=== PATIENT | female | born 1935 | race Caucasian/White ===

== ENCOUNTER → 2021-01-30 | Outpatient (CLI) | payer MEDICARE ==
[~2021-01-30] MED LIST: ACET65TA; AFRI0.65; ALBUTEROL INH; ATROVENT; ATROVENT0.02%; AVAP300T; AVEL1TAB2; CALCIUM/VIT D OR; CEFT250T; CEFT500T OR; CETI10TA OR; FLOVENT INH; LEVA500T OR; LISI40TA OR; NEXI1CAP3; NYSTATIN ORAL OR; OMEGA 3 OR; ORASONE; PAXI20TA OR; PRED10TA2; PRED10TA2 OR; PROV90AE; SERE1AER; SPIR1CAP; SPIR1CAP INH; XANA0.25; [UNRECOGNIZED DRUG - OTHER]; brovana
--- NOTE | 2021-01-30 12:44 | REP ---
INDICATION: PAIN, DECREASED ROM. COMPARISON: None. TECHNIQUE: Three views of the shoulder were performed. FINDINGS: There is moderate AC joint space narrowing which is slightly asymmetric. There is glenohumeral joint space narrowing with superior subluxation of the humeral head within the glenoid. This narrows the subacromial space rather significantly. There is no evidence of an acute fracture or dislocation. IMPRESSION: Chronic changes as described above. <Electronically signed by Amanuel Boyle > 01/30/21 [id number]
== END ==
LOC: M WUC 11:42
PROVIDERS: ATTEND Physician Assistant Medical
DX: M25.511 Pain in right shoulder (principal)

== ENCOUNTER → 2021-06-02 | Outpatient (CLI) | payer MEDICARE ==
[2021-06-02 18:14] LABS: CREATININE FOR GFR 1.01 MG/DL (0.55-1.30); GLOMERULAR FILTRATION RATE 55.5 (>32); POTASSIUM SERUM 4.7 MEQ/L (3.5-5.1); THYROID STIMULATING HORMONE 1.23 uIU/ML (0.358-3.740)
[2021-06-02 18:16] LABS: CREATININE, URINE 67.9 MG/DL; MALB URINE SIEMENS 6.7 MG/L; MAU/CREAT RATIO 9.8 MCG/MG (0.0-30.0)
== END ==
LOC: M PLALAB 14:38
PROVIDERS: ATTEND Nurse Practitioner Family
DX: F41.1 Generalized anxiety disorder (principal); I10 Essential (primary) hypertension

== ENCOUNTER → 2021-06-24 | Outpatient (REF) | payer MEDICARE ==
[2021-06-24 17:19] LABS: BASO # 0.1 10^3/uL (0.0-0.2); BASO % 0.9 % (0.0-1.0); EOS # 0.3 10^3/uL (0.0-0.5); EOS % 3.3 % (0.0-3.0); HEMATOCRIT 36.5 % (36.0-47.0); HEMOGLOBIN 11.9 g/dl (12.0-15.5); LYMPH # 1.7 10^3/uL (1.5-5.0); LYMPH % 19.9 % (24.0-44.0); MEAN CORPUSCULAR HEMOGLOBIN 29.8 pg (27.0-33.0); MEAN CORPUSCULAR HGB CONC 32.6 g/dl (32.0-36.5); MEAN CORPUSCULAR VOLUME 91.5 fl (80.0-96.0); MONO # 0.8 10^3/uL (0.0-0.8); MONO % 8.8 % (2.0-8.0); NEUTROPHILS # 5.8 10^3/uL (1.5-8.5); NEUTROPHILS % 66.8 % (36.0-66.0); PLATELET COUNT, AUTOMATED 437 10^3/uL (150-450); RED BLOOD COUNT 3.99 10^6/uL (4.00-5.40); WHITE BLOOD COUNT 8.7 10^3/uL (4.0-10.0)
[2021-06-24 17:48] LABS: ALBUMIN 3.4 GM/DL (3.2-5.2); ALT/SGPT 18 U/L (12-78); BILIRUBIN,TOTAL 0.3 MG/DL (0.2-1.0); BLOOD UREA NITROGEN 20 MG/DL (7-18); C REACTIVE PROTEIN QUANTITATIV 0.63 MG/DL (0.00-0.30); CALCIUM LEVEL 9.3 MG/DL (8.8-10.2); CARBON DIOXIDE LEVEL 27 MEQ/L (21-32); CHLORIDE LEVEL 103 MEQ/L (98-107); CREATININE FOR GFR 0.86 MG/DL (0.55-1.30); GLOMERULAR FILTRATION RATE > 60.0 (>32); GLUCOSE, FASTING 69 MG/DL (70-100); POTASSIUM SERUM 4.8 MEQ/L (3.5-5.1); RHEUMATOID FACTOR QUANT < 10.0 IU/ML (<15.0); SODIUM LEVEL 135 MEQ/L (136-145); TOTAL PROTEIN 5.9 GM/DL (6.4-8.2)
[2021-06-24 17:58] LABS: ERYTHROCYTE SEDIMENTATION RATE 10 mm/hr (0-30)
[2021-06-27 00:07] LABS: ANA (HEP2) Negative (.); CYCLIC CITRULLINATED PEPTIDE 6 units (0-19)
== END ==
LOC: M SFHCRHEU 13:59
PROVIDERS: ATTEND Internal Medicine Rheumatology
DX: M89.49 Other hypertrophic osteoarthropathy, multiple sites (principal)
CPT/HCPCS: 36415; 80053; 85025; 85652; 86038; 86140; 86200; 86431; G0463

== ENCOUNTER → 2021-07-20 | Outpatient (CLI) | payer MEDICARE ==
--- NOTE | 2021-07-20 12:04 | REP ---
INDICATION: OTHER HYPERTROPHIC OSTEOARTHROPATHY, MULTIPLE SITES COMPARISON: None. TECHNIQUE: AP, lateral, bilateral oblique views right and left hand. FINDINGS: Relatively symmetric advanced osteoarthritic degenerative changes are appreciated bilaterally. Findings most notably involve the interphalangeal joints along with the 1st metacarpophalangeal joint and lateral aspect of the wrists. Findings include periarticular sclerosis, joint space narrowing, marginal spurring/osteophyte formation as well as 1st carpometacarpal joint chronic subluxation and chondrocalcinosis. IMPRESSION: Relatively symmetric advanced osteoarthritic degenerative changes to the hands and wrists. <Electronically signed by Arian Williamson > 07/20/21 1200
--- NOTE | 2021-07-20 12:06 | REP ---
INDICATION: OTHER HYPERTROPHIC OSTEOARTHROPATHY, MULTIPLE SITES COMPARISON: None. TECHNIQUE: AP, lateral, bilateral oblique views right and left foot. FINDINGS: Relatively symmetric age-related degenerative changes noted throughout the foot/ankles. No acute fracture or dislocation. Lateral views demonstrate small bilateral calcaneal heel spurs. IMPRESSION: Symmetric age-related degenerative changes. <Electronically signed by Arian Williamson > 07/20/21 [id number]
== END ==
LOC: M PLAIMG 11:27 → M PLALAB 11:27
PROVIDERS: ATTEND Internal Medicine Rheumatology
DX: M89.49 Other hypertrophic osteoarthropathy, multiple sites (principal)

== ENCOUNTER → 2022-02-25 | Outpatient (CLI) | payer MEDICARE ==
[2022-02-25 13:57] LABS: HEMATOCRIT 40.6 % (36.0-47.0); HEMOGLOBIN 13.3 g/dl (12.0-15.5); MEAN CORPUSCULAR HEMOGLOBIN 30.2 pg (27.0-33.0); MEAN CORPUSCULAR HGB CONC 32.8 g/dl (32.0-36.5); MEAN CORPUSCULAR VOLUME 92.3 fl (80.0-96.0); PLATELET COUNT, AUTOMATED 374 10^3/uL (150-450)
[2022-02-25 14:48] LABS: ALBUMIN 3.6 GM/DL (3.2-5.2); BILIRUBIN,TOTAL 0.5 MG/DL (0.2-1.0); CALCIUM LEVEL 8.9 MG/DL (8.8-10.2); CHOLESTEROL RISK RATIO 2.877 (<5); CREATININE FOR GFR 1.02 MG/DL (0.55-1.30); GLOMERULAR FILTRATION RATE 54.7 (>32); POTASSIUM SERUM 4.3 MEQ/L (3.5-5.1); THYROID STIMULATING HORMONE 1.24 uIU/ML (0.358-3.740); TOTAL PROTEIN 6.1 GM/DL (6.4-8.2)
== END ==
LOC: M PLALAB 10:38
PROVIDERS: ATTEND Nurse Practitioner Adult Health
DX: Z00.00 Encounter for general adult medical examination without abnormal findings (principal); Z13.29 Encounter for screening for other suspected endocrine disorder; E55.9 Vitamin D deficiency, unspecified; E78.2 Mixed hyperlipidemia; I10 Essential (primary) hypertension; Z79.899 Other long term (current) drug therapy

== ENCOUNTER → 2022-05-14 | Outpatient (CLI) | payer MEDICARE | LOC: M PLAIMG 10:45 → M PLALAB 10:45 | PROVIDERS: ATTEND Internal Medicine Pulmonary Disease | DX: J96.11 Chronic respiratory failure with hypoxia (principal); J44.9 Chronic obstructive pulmonary disease, unspecified; M51.36 Other intervertebral disc degeneration, lumbar region ==

== ENCOUNTER → 2022-11-26 | Outpatient (REF) | payer MEDICARE | LOC: M LAB REF 14:50 | PROVIDERS: ATTEND Internal Medicine Pulmonary Disease | DX: J44.9 Chronic obstructive pulmonary disease, unspecified (principal); J30.9 Allergic rhinitis, unspecified ==

== ENCOUNTER → 2023-01-12 | Outpatient (CLI) | payer MEDICARE ==
[2023-01-12 15:48] LABS: ALBUMIN 3.6 G/DL (3.2-5.2); BILIRUBIN,TOTAL 0.5 MG/DL (0.3-1.2); CALCIUM LEVEL 9.1 MG/DL (8.3-10.6); CREATININE FOR GFR 1.08 MG/DL (0.55-1.30); GLOMERULAR FILTRATION RATE 51.2 (>32); POTASSIUM SERUM 4.9 MMOL/L (3.5-5.1); TOTAL PROTEIN 5.5 G/DL (5.7-8.2)
== END ==
LOC: M PLALAB 11:53
PROVIDERS: ATTEND Nurse Practitioner Adult Health
DX: I10 Essential (primary) hypertension (principal)

== ENCOUNTER 2023-03-28 16:40 | Inpatient (IN) | payer MEDICARE ==
[~2023-03-28] VITALS: Ht 157.5 cm; Wt 63.8 kg
[2023-03-28] MEDS ORDERED: methylPREDNISolone 125MG 2ML VIAL IV ONE (17:15)
[2023-03-28 17:22] LABS: BASO # 0.1 10^3/uL (0.0-0.2); BASO % 0.2 % (0.0-1.0); HEMATOCRIT 40.8 % (36.0-47.0); HEMOGLOBIN 13.2 g/dl (12.0-15.5); LYMPH # 1.4 10^3/uL (1.5-5.0); LYMPH % 5.5 % (24.0-44.0); MEAN CORPUSCULAR HEMOGLOBIN 30.1 pg (27.0-33.0); MEAN CORPUSCULAR HGB CONC 32.4 g/dl (32.0-36.5); MEAN CORPUSCULAR VOLUME 93.2 fl (80.0-96.0); MONO # 1.3 10^3/uL (0.0-0.8); MONO % 4.9 % (2.0-8.0); NEUTROPHILS # 22.8 10^3/uL (1.5-8.5); NEUTROPHILS % 88.7 % (36.0-66.0); PLATELET COUNT, AUTOMATED 479 10^3/uL (150-450); RED BLOOD COUNT 4.38 10^6/uL (4.00-5.40); WHITE BLOOD COUNT 25.7 10^3/uL (4.0-10.0)
[2023-03-28 17:53] LABS: CK-MB VALUE MASS 1.8 NG/ML (<3.6)
[2023-03-28 17:55] LABS: ALBUMIN 3.9 G/DL (3.2-5.2); ALKALINE PHOSPHATASE 95 U/L (46-116); ALT/SGPT 35 U/L (7.0-40); AST/SGOT 27 U/L (<34); BILIRUBIN,DIRECT 0.1 MG/DL (<0.4); BILIRUBIN,TOTAL 0.4 MG/DL (0.3-1.2); BLOOD UREA NITROGEN 19 MG/DL (9-23); CALCIUM LEVEL 9.1 MG/DL (8.3-10.6); CARBON DIOXIDE LEVEL 28 MMOL/L (20-31); CHLORIDE LEVEL 101 MMOL/L (98-107); CPK CREATINE PHOSPHOKINASE 66 U/L (34-145); CREATININE FOR GFR 0.92 MG/DL (0.55-1.30); GLOMERULAR FILTRATION RATE > 60.0 (>32); GLUCOSE, FASTING 151 MG/DL (74-106); MB/CK RELATIVE INDEX 2.72 (< OR =4); POTASSIUM SERUM 4.6 MMOL/L (3.5-5.1); SODIUM LEVEL 136 MMOL/L (136-145); TOTAL PROTEIN 6.2 G/DL (5.7-8.2)
[2023-03-28 17:56] LABS: THYROID STIMULATING HORMONE 0.572 uIU/ML (0.55-4.78)
[2023-03-28 17:57] LABS: THYROXINE (T4) 6.8 UG/DL (4.5-10.9)
[2023-03-28 19:06] LABS: MB/CK RELATIVE INDEX 1.56 (< OR =4)
[2023-03-28] MEDS ORDERED: ALBU8.5H INH (20:20)
[2023-03-28] MEDS ORDERED: CETI10TA4 PO (20:20)
[2023-03-28] MEDS ORDERED: FLON1SPR NARES (20:26)
[2023-03-28] MEDS ORDERED: GALZ50CA PO (20:26)
[2023-03-28] MEDS ORDERED: PRED10TA2 PO (20:39)
[2023-03-28] MEDS ORDERED: PARO10TA3 PO (20:39)
[2023-03-28] MEDS ORDERED: BIMA01SOL OU (20:39)
[2023-03-28] MEDS ORDERED: LISI20TA33 PO (20:39)
[2023-03-28] MEDS ORDERED: ANOR1AER INH (20:39)
[2023-03-28] MEDS ORDERED: ARNU1INH3 INH (20:39)
[2023-03-28] MEDS ORDERED: CALC-190 PO (20:39)
[2023-03-28] MEDS ORDERED: MUCI600T31 PO (20:39)
[2023-03-28] MEDS ORDERED: ACET650T61 PO (20:39)
[2023-03-28] MEDS ORDERED: HOME MED LIST COMPLETE! XX SCH (20:40)
[2023-03-28] MEDS ORDERED: ALBUTEROL SULFATE 2.5MG/0.5ML INH NEB SOLN NEB PRN (20:40)
[2023-03-28] MEDS ORDERED: NS 1,000 ML IV SCH (20:40)
[2023-03-28] MEDS: ACETAMINOPHEN TAB 650MG DOSE (2X325MG) PO PRN (22:01)
[2023-03-28] MEDS: methylPREDNISolone 40MG 1ML VIAL IV SCH (22:42)
[2023-03-28 23:30] VITALS: BP 162/98; TEMP 97.5; O2SAT 94
[2023-03-29] MEDS: guaiFENesin ER 600 MG TAB PO SCH ×3 (00:06→22:27)
[2023-03-29] MEDS ORDERED: NS 500 ML IV ONE (00:20)
[2023-03-29] MEDS ORDERED: IPRATROPIUM 0.5MG/ALBUTEROL 2.5MG INH SOL UD 3ML (DUONEB) NEB SCH (02:00)
[2023-03-29] MEDS: methylPREDNISolone 40MG 1ML VIAL IV SCH (04:51)
[2023-03-29 04:54] LABS: BLOOD UREA NITROGEN 20 MG/DL (9-23); CALCIUM LEVEL 8.3 MG/DL (8.3-10.6); CARBON DIOXIDE LEVEL 23 MMOL/L (20-31); CHLORIDE LEVEL 103 MMOL/L (98-107); CREATININE FOR GFR 0.86 MG/DL (0.55-1.30); GLOMERULAR FILTRATION RATE > 60.0 (>32); GLUCOSE, FASTING 218 MG/DL (74-106); POTASSIUM SERUM 4.4 MMOL/L (3.5-5.1); SODIUM LEVEL 134 MMOL/L (136-145)
[2023-03-29 05:25] VITALS: BP 152/76; TEMP 98.2; O2SAT 94
[2023-03-29] MEDS ORDERED: DEXTROSE 50% 50ML SYRINGE IV PRN (06:50)
[2023-03-29] MEDS ORDERED: GLUCAGON INJ 1MG VIAL SC PRN (06:50)
[2023-03-29] MEDS ORDERED: GLUCOSE 4GM CHEW TABLET PO PRN (06:50)
[2023-03-29 07:21] LABS: BASO # 0.1 10^3/uL (0.0-0.2); BASO % 0.1 % (0.0-1.0); HEMATOCRIT 35.8 % (36.0-47.0); HEMOGLOBIN 11.6 g/dl (12.0-15.5); LYMPH # 0.9 10^3/uL (1.5-5.0); LYMPH % 2.5 % (24.0-44.0); MEAN CORPUSCULAR HEMOGLOBIN 30.1 pg (27.0-33.0); MEAN CORPUSCULAR HGB CONC 32.4 g/dl (32.0-36.5); MONO # 0.8 10^3/uL (0.0-0.8); MONO % 2.3 % (2.0-8.0); NEUTROPHILS # 32.6 10^3/uL (1.5-8.5); NEUTROPHILS % 94.3 % (36.0-66.0); PLATELET COUNT, AUTOMATED 427 10^3/uL (150-450); RED BLOOD COUNT 3.85 10^6/uL (4.00-5.40)
[2023-03-29 07:33] LABS: WHITE BLOOD COUNT 34.6 10^3/uL (4.0-10.0)
[2023-03-29] MEDS: IPRATROPIUM 0.5MG/ALBUTEROL 2.5MG INH SOL UD 3ML (DUONEB) NEB SCH ×3 (07:49→14:55)
[2023-03-29] MEDS ORDERED: SYMBICORT 160/4.5MCG INHALER 6GM INH SCH (08:00)
[2023-03-29] MEDS: ENOXAPARIN 40MG/0.4ML SYRINGE (J1650 PER 10MG) SC SCH (08:04)
[2023-03-29] MEDS: INSULIN LISPRO (NovoLOG) PER UNIT SC SCH ×4 (08:05→21:00)
[2023-03-29] MEDS: PARoxetine 10MG TABLET PO SCH (08:05)
[2023-03-29] MEDS: ACETAMINOPHEN TAB 650MG DOSE (2X325MG) PO PRN ×2 (10:41→22:31)
[2023-03-29] MEDS ORDERED: methylPREDNISolone 40MG 1ML VIAL IV SCH (13:00)
[2023-03-29 14:00] VITALS: BP 148/75; TEMP 98.4; O2SAT 93
[2023-03-29] MEDS ORDERED: NS 1,000 ML IV SCH (14:00)
[2023-03-29] MEDS: AUGMENTIN 875 MG TAB PO SCH ×2 (14:12→22:27)
[2023-03-29] MEDS ORDERED: PANTOPRAZOLE 40MG VIAL IV ONE (16:45)
[2023-03-29] MEDS ORDERED: LEVALBUTEROL HFA 45MCG/ACT 15GM INHALER INH PRN (18:10)
[2023-03-29] MEDS ORDERED: ISOVUE-370 76% 100ML VIAL As Ordered ONE (19:09)
[2023-03-29 19:58] VITALS: BP 163/93; TEMP 99.7; O2SAT 92
[2023-03-29] MEDS: ADVAIR HFA 230/21MCG INHALER INH SCH (20:17)
[2023-03-29] MEDS ORDERED: hydrOXYzine 50 MG TAB PO ONE (20:40)
[2023-03-29 21:45] VITALS: BP 158/72; TEMP 97.5; O2SAT 92
[2023-03-29] MEDS: FLUTICASONE PROP 0.05% NASAL SPRAY 16 GM (FLONASE) NARES SCH (22:28)
[2023-03-30 05:42] VITALS: BP 156/91; TEMP 98.1; O2SAT 94
[2023-03-30 06:16] LABS: BASO # 0.1 10^3/uL (0.0-0.2); BASO % 0.2 % (0.0-1.0); HEMOGLOBIN 10.5 g/dl (12.0-15.5); LYMPH # 0.7 10^3/uL (1.5-5.0); LYMPH % 2.6 % (24.0-44.0); MEAN CORPUSCULAR HGB CONC 32.8 g/dl (32.0-36.5); MEAN CORPUSCULAR VOLUME 91.4 fl (80.0-96.0); MONO # 0.7 10^3/uL (0.0-0.8); MONO % 2.6 % (2.0-8.0); NEUTROPHILS # 25.6 10^3/uL (1.5-8.5); NEUTROPHILS % 93.8 % (36.0-66.0); PLATELET COUNT, AUTOMATED 383 10^3/uL (150-450); WHITE BLOOD COUNT 27.2 10^3/uL (4.0-10.0)
[2023-03-30 06:44] LABS: BLOOD UREA NITROGEN 17 MG/DL (9-23); CALCIUM LEVEL 8.2 MG/DL (8.3-10.6); CARBON DIOXIDE LEVEL 25 MMOL/L (20-31); CHLORIDE LEVEL 107 MMOL/L (98-107); CREATININE FOR GFR 0.85 MG/DL (0.55-1.30); GLOMERULAR FILTRATION RATE > 60.0 (>32); GLUCOSE, FASTING 98 MG/DL (74-106); POTASSIUM SERUM 4.4 MMOL/L (3.5-5.1); SODIUM LEVEL 138 MMOL/L (136-145)
[2023-03-30] MEDS: TIOTROPIUM INHALER/CAPSULE (SPIRIVA) INH SCH (07:10)
[2023-03-30] MEDS: ADVAIR HFA 230/21MCG INHALER INH SCH ×2 (07:11→20:31)
[2023-03-30] MEDS: INSULIN LISPRO (NovoLOG) PER UNIT SC SCH ×4 (07:30→21:00)
[2023-03-30] MEDS: PARoxetine 10MG TABLET PO SCH (09:01)
[2023-03-30] MEDS: AUGMENTIN 875 MG TAB PO SCH ×2 (09:01→20:16)
[2023-03-30] MEDS: predniSONE 20 MG TAB PO SCH (09:02)
[2023-03-30] MEDS: guaiFENesin ER 600 MG TAB PO SCH ×2 (09:02→20:16)
[2023-03-30] MEDS: ENOXAPARIN 40MG/0.4ML SYRINGE (J1650 PER 10MG) SC SCH (09:03)
[2023-03-30] MEDS: FLUTICASONE PROP 0.05% NASAL SPRAY 16 GM (FLONASE) NARES SCH ×2 (09:05→20:17)
[2023-03-30] MEDS ORDERED: E-Z-GAS II EFFERVESCENT PACKET (SODIUM BICARB./CITRIC ACID/SIMETHICONE) As Ordered ONE (10:04)
[2023-03-30] MEDS ORDERED: E-Z-PAQUE 96% w/w SUSP 176GM BTL As Ordered ONE (10:04)
[2023-03-30] MEDS ORDERED: E-Z-HD 98% w/w 340GM SUSP BTL As Ordered ONE (10:04)
[2023-03-30 14:00] VITALS: BP 140/78; TEMP 98.6; O2SAT 93
[2023-03-30 20:50] VITALS: BP 165/90; TEMP 97.5; O2SAT 93
[2023-03-30] MEDS ORDERED: PANTOPRAZOLE 40MG TAB (PROTONIX) PO SCH (21:00)
[2023-03-31 06:39] LABS: BASO % 0.2 % (0.0-1.0); EOS # 0.2 10^3/uL (0.0-0.5); LYMPH # 1.1 10^3/uL (1.5-5.0); LYMPH % 5.9 % (24.0-44.0); MEAN CORPUSCULAR HEMOGLOBIN 30.4 pg (27.0-33.0); MEAN CORPUSCULAR HGB CONC 33.3 g/dl (32.0-36.5); MEAN CORPUSCULAR VOLUME 91.2 fl (80.0-96.0); MONO # 0.8 10^3/uL (0.0-0.8); MONO % 4.4 % (2.0-8.0); NEUTROPHILS # 16.4 10^3/uL (1.5-8.5); NEUTROPHILS % 87.8 % (36.0-66.0); PLATELET COUNT, AUTOMATED 363 10^3/uL (150-450); RED BLOOD COUNT 3.29 10^6/uL (4.00-5.40); WHITE BLOOD COUNT 18.7 10^3/uL (4.0-10.0)
[2023-03-31 06:46] LABS: BLOOD UREA NITROGEN 16 MG/DL (9-23); CALCIUM LEVEL 8.6 MG/DL (8.3-10.6); CARBON DIOXIDE LEVEL 28 MMOL/L (20-31); CHLORIDE LEVEL 104 MMOL/L (98-107); GLOMERULAR FILTRATION RATE > 60.0 (>32); GLUCOSE, FASTING 86 MG/DL (74-106); SODIUM LEVEL 136 MMOL/L (136-145)
[2023-03-31 07:05] VITALS: BP 178/92; TEMP 99; O2SAT 93
[2023-03-31] MEDS: TIOTROPIUM INHALER/CAPSULE (SPIRIVA) INH SCH (07:14)
[2023-03-31] MEDS: ADVAIR HFA 230/21MCG INHALER INH SCH (07:14)
[2023-03-31] MEDS: INSULIN LISPRO (NovoLOG) PER UNIT SC SCH ×2 (07:30→12:00)
[2023-03-31] MEDS ORDERED: PANT40TA29 PO (07:55)
[2023-03-31] MEDS ORDERED: SUCR1TA PO (07:55)
[2023-03-31] MEDS ORDERED: AMOX875T2 PO (07:55)
[2023-03-31] MEDS ORDERED: PRED10TA2 PO (07:55)
[2023-03-31 09:18] VITALS: BP 178/92
[2023-03-31] MEDS: ENOXAPARIN 40MG/0.4ML SYRINGE (J1650 PER 10MG) SC SCH (09:18)
[2023-03-31] MEDS: PARoxetine 10MG TABLET PO SCH (09:18)
[2023-03-31] MEDS: FLUTICASONE PROP 0.05% NASAL SPRAY 16 GM (FLONASE) NARES SCH (09:18)
[2023-03-31] MEDS: AUGMENTIN 875 MG TAB PO SCH (09:18)
[2023-03-31] MEDS: predniSONE 20 MG TAB PO SCH (09:18)
[2023-03-31] MEDS: guaiFENesin ER 600 MG TAB PO SCH (09:18)
[2023-03-31] MEDS ORDERED: PRED20TA PO (10:28)
== END 2023-03-31 14:08 | disposition home health service (06) | DRG 872 ==
LOC: M ED 16:40 → M ED INP 20:40 → ENRESERVDT 23:17 → ENRESERVTM 23:17 → M MS5PR 23:30
PROVIDERS: ADMIT Internal Medicine; ATTEND Internal Medicine Nephrology
DX: A41.9 Sepsis, unspecified organism (principal); J44.1 Chronic obstructive pulmonary disease with (acute) exacerbation; E87.20 Acidosis, unspecified; J44.0 Chronic obstructive pulmonary disease with (acute) lower respiratory infection; J96.11 Chronic respiratory failure with hypoxia; I50.32 Chronic diastolic (congestive) heart failure; K22.10 Ulcer of esophagus without bleeding; M15.0 Primary generalized (osteo)arthritis; F41.9 Anxiety disorder, unspecified; H40.9 Unspecified glaucoma; F32.A Depression, unspecified; M85.80 Other specified disorders of bone density and structure, unspecified site; I11.0 Hypertensive heart disease with heart failure; K44.9 Diaphragmatic hernia without obstruction or gangrene; I27.20 Pulmonary hypertension, unspecified; J20.9 Acute bronchitis, unspecified; Z99.81 Dependence on supplemental oxygen; Z87.891 Personal history of nicotine dependence; Z90.49 Acquired absence of other specified parts of digestive tract; Z79.52 Long term (current) use of systemic steroids; Z79.899 Other long term (current) drug therapy; Z88.5 Allergy status to narcotic agent

== ENCOUNTER 2023-08-12 11:22 | Day surgery (SDC) | payer MEDICARE ==
[~2023-08-12] VITALS: Ht 157.5 cm; Wt 61.6 kg
[~2023-08-12 11:22] MED LIST changes: +ACET650T61 PO; +ALBU8.5H INH; +AMOX875T2 PO; +ANOR1AER INH; +ARNU1INH3 INH; +BIMA01SOL OU; +CALC-190 PO; +CETI10TA4 PO; +FLON1SPR NARES; +GALZ50CA PO; +LISI20TA33 PO; +MUCI600T31 PO; +NS 1,000 ML IV ONE; +PANT40TA29 PO; +PARO10TA3 PO; +PRED10TA2 PO; +PRED20TA PO; +SUCR1TA PO
[2023-08-12] MEDS ORDERED: PHENYLephrine 500MCG 5ML (100MCG/ML) SYRINGE As Ordered ONE (12:56)
[2023-08-12] MEDS ORDERED: fentaNYL 100 MCG/2 ML INJECTION As Ordered ONE (12:56)
[2023-08-12] MEDS ORDERED: LIDOCAINE 2% 100MG/5ML SDV (FOR ANES.) As Ordered ONE (12:56)
[2023-08-12] MEDS ORDERED: propofoL 500 MG/50 ML VIAL As Ordered ONE (12:56)
[2023-08-12] MEDS ORDERED: ePHEDrine SULFATE 25 MG/5 ML(5MG/ML) SYRINGE As Ordered ONE (12:56)
[2023-08-12 13:19] VITALS: TEMP 97.1
[2023-08-12 13:40] VITALS: BP 155/67; O2SAT 97
== END 2023-08-12 13:50 | disposition home or self-care (01) ==
LOC: M OPP 11:22
PROVIDERS: ATTEND Internal Medicine Gastroenterology
DX: D12.2 Benign neoplasm of ascending colon (principal); K63.5 Polyp of colon; K62.5 Hemorrhage of anus and rectum; K57.30 Diverticulosis of large intestine without perforation or abscess without bleeding; K64.8 Other hemorrhoids; K44.9 Diaphragmatic hernia without obstruction or gangrene; Q39.6 Congenital diverticulum of esophagus; R93.3 Abnormal findings on diagnostic imaging of other parts of digestive tract; Z79.51 Long term (current) use of inhaled steroids; Z79.52 Long term (current) use of systemic steroids; Z79.60 Long term (current) use of unspecified immunomodulators and immunosuppressants; Z79.899 Other long term (current) drug therapy; Z79.1 Long term (current) use of non-steroidal anti-inflammatories (NSAID); Z88.5 Allergy status to narcotic agent; Z91.040 Latex allergy status
CPT/HCPCS: 43235; 45385; 88305; J2371; J3010

== ENCOUNTER 2023-10-12 12:57 | Emergency (ER) | payer MEDICARE ==
[~2023-10-12] VITALS: Ht 157.5 cm; Wt 60.5 kg
[~2023-10-12 12:57] MED LIST changes: -NS 1,000 ML IV ONE
[2023-10-12] MEDS ORDERED: IPRATROPIUM 0.5MG/ALBUTEROL 2.5MG INH SOL UD 3ML (DUONEB) NEB PRN (13:10)
[2023-10-12] MEDS ORDERED: ASPIRIN 81MG CHEW TABLET PO ONE (13:10)
[2023-10-12] MEDS ORDERED: methylPREDNISolone 125MG 2ML VIAL IV ONE (13:10)
[2023-10-12 13:56] LABS: BASO # 0.1 10^3/uL (0.0-0.2); BASO % 0.2 % (0.0-1.0); EOS % 0.2 % (0.0-3.0); HEMATOCRIT 34.7 % (36.0-47.0); HEMOGLOBIN 11.2 g/dl (12.0-15.5); LYMPH # 1.7 10^3/uL (1.5-5.0); LYMPH % 8.6 % (24.0-44.0); MEAN CORPUSCULAR HEMOGLOBIN 29.1 pg (27.0-33.0); MEAN CORPUSCULAR HGB CONC 32.3 g/dl (32.0-36.5); MEAN CORPUSCULAR VOLUME 90.1 fl (80.0-96.0); MONO # 1.4 10^3/uL (0.0-0.8); MONO % 7.1 % (2.0-8.0); NEUTROPHILS # 16.9 10^3/uL (1.5-8.5); NEUTROPHILS % 83.3 % (36.0-66.0); PLATELET COUNT, AUTOMATED 386 10^3/uL (150-450); RED BLOOD COUNT 3.85 10^6/uL (4.00-5.40); WHITE BLOOD COUNT 20.3 10^3/uL (4.0-10.0)
[2023-10-12 14:22] LABS: ALBUMIN 3.4 G/DL (3.2-5.2); ALKALINE PHOSPHATASE 101 U/L (46-116); ALT/SGPT 31 U/L (7.0-40); AST/SGOT 30 U/L (<34); BILIRUBIN,DIRECT 0.4 MG/DL (<0.4); BLOOD UREA NITROGEN 20 MG/DL (9-23); CALCIUM LEVEL 9.1 MG/DL (8.3-10.6); CARBON DIOXIDE LEVEL 26 MMOL/L (20-31); CHLORIDE LEVEL 100 MMOL/L (98-107); CK-MB VALUE MASS < 1.0 NG/ML (<3.6); CPK CREATINE PHOSPHOKINASE 66 U/L (34-145); CREATININE FOR GFR 0.98 MG/DL (0.55-1.30); GLOMERULAR FILTRATION RATE 57.2 (>32); GLUCOSE, FASTING 107 MG/DL (74-106); MB/CK RELATIVE INDEX 1.51 (< OR =4); POTASSIUM SERUM 4.2 MMOL/L (3.5-5.1); SODIUM LEVEL 134 MMOL/L (136-145); TOTAL PROTEIN 5.6 G/DL (5.7-8.2)
[2023-10-12 14:50] LABS: ABG BASE EXCESS -1.2 (-2.0-2.0); ABG HCO3 21.6 MMOL/L (22.0-26.0); ABG O2 SATURATION 96.7 % (95.0-99.0); ABG PARTIAL PRESSURE CO2 30.6 mmHg (35.0-45.0); ABG STANDARD HCO3 23.4 MMOL/L. (22.0-26.0); ABG TOTAL CO2 22.6 MMOL/L (23.0-31.0); ABG pH (ARTERIAL) 7.467 UNITS (7.350-7.450)
[2023-10-12 15:03] LABS: INR 1.15; PROTHROMBIN TIME 14.4 SECONDS (12.5-14.5)
[2023-10-12] MEDS ORDERED: MOXI400T11 PO (16:36)
[2023-10-12] MEDS ORDERED: PRED20TA PO (16:36)
[2023-10-12 16:57] VITALS: BP 154/64; TEMP 97.8; O2SAT 93
== END 2023-10-12 17:10 | disposition home or self-care (01) ==
LOC: M ED 12:57
DX: J44.1 Chronic obstructive pulmonary disease with (acute) exacerbation (principal); I10 Essential (primary) hypertension; Z99.81 Dependence on supplemental oxygen; Z88.5 Allergy status to narcotic agent; Z91.040 Latex allergy status; Z79.51 Long term (current) use of inhaled steroids; Z79.52 Long term (current) use of systemic steroids; Z79.899 Other long term (current) drug therapy
CPT/HCPCS: 36600; 71045; 80048; 80076; 82550; 82553; 82803; 83880; 84484; 85025; 85610; 87040; 87486; 87581; 87633; 87798; 93005; 93041; 94640; 94760; 96374; 99285; J2930

== ENCOUNTER 2023-10-22 18:36 | Inpatient (IN) | payer MEDICARE ==
[~2023-10-22 18:36] MED LIST changes: +MOXI400T11 PO
[2023-10-22] MEDS ORDERED: methylPREDNISolone 125MG 2ML VIAL IV ONE (19:20)
[2023-10-22] MEDS ORDERED: IPRATROPIUM 0.5MG/ALBUTEROL 2.5MG INH SOL UD 3ML (DUONEB) NEB PRN (19:20)
[2023-10-22 19:41] LABS: BASO % 0.1 % (0.0-1.0); HEMATOCRIT 37.4 % (36.0-47.0); HEMOGLOBIN 12.5 g/dl (12.0-15.5); LYMPH # 1.8 10^3/uL (1.5-5.0); MEAN CORPUSCULAR HEMOGLOBIN 29.3 pg (27.0-33.0); MEAN CORPUSCULAR HGB CONC 33.4 g/dl (32.0-36.5); MEAN CORPUSCULAR VOLUME 87.6 fl (80.0-96.0); MONO # 0.8 10^3/uL (0.0-0.8); MONO % 3.8 % (2.0-8.0); NEUTROPHILS # 16.9 10^3/uL (1.5-8.5); NEUTROPHILS % 85.9 % (36.0-66.0); PLATELET COUNT, AUTOMATED 603 10^3/uL (150-450); RED BLOOD COUNT 4.27 10^6/uL (4.00-5.40); WHITE BLOOD COUNT 19.7 10^3/uL (4.0-10.0)
[2023-10-22 20:03] LABS: CK-MB VALUE MASS 1.3 NG/ML (<3.6)
[2023-10-22 20:05] LABS: ALBUMIN 3.8 G/DL (3.2-5.2); ALKALINE PHOSPHATASE 91 U/L (46-116); ALT/SGPT 18 U/L (7.0-40); AST/SGOT 15 U/L (<34); BILIRUBIN,DIRECT 0.1 MG/DL (<0.4); BILIRUBIN,TOTAL 0.5 MG/DL (0.3-1.2); BLOOD UREA NITROGEN 28 MG/DL (9-23); CALCIUM LEVEL 9.5 MG/DL (8.3-10.6); CARBON DIOXIDE LEVEL 27 MMOL/L (20-31); CHLORIDE LEVEL 101 MMOL/L (98-107); GLOMERULAR FILTRATION RATE > 60.0 (>32); GLUCOSE, FASTING 106 MG/DL (74-106); POTASSIUM SERUM 5.6 MMOL/L (3.5-5.1); SODIUM LEVEL 134 MMOL/L (136-145)
[2023-10-22 20:07] LABS: THYROID STIMULATING HORMONE 0.448 uIU/ML (0.55-4.78)
[2023-10-22 20:10] LABS: CPK CREATINE PHOSPHOKINASE 46 U/L (34-145); MB/CK RELATIVE INDEX 2.82 (< OR =4)
[2023-10-22] MEDS ORDERED: SOD POLYSTYRENE SULFONATE SUSP 15GM 60ML UD PO ONE (22:25)
[2023-10-23] MEDS ORDERED: ALBUTEROL SULFATE 2.5MG/0.5ML INH NEB SOLN NEB PRN (00:40)
[2023-10-23] MEDS: IPRATROPIUM 0.5MG/ALBUTEROL 2.5MG INH SOL UD 3ML (DUONEB) NEB SCH ×4 (01:04→19:53)
[2023-10-23] MEDS: cefTRIAXone SOD 1 GM in D5W MINI-BAG PLUS 50 ML IV SCH ×2 (01:30→23:26)
[2023-10-23] MEDS: DOXYCYCLINE HYCLATE 100MG TABLET PO SCH ×3 (02:07→20:18)
[2023-10-23 02:15] VITALS: BP 133/84; TEMP 97.7; O2SAT 93
[2023-10-23 06:00] VITALS: BP 151/91; TEMP 97.7; O2SAT 92
[2023-10-23 06:46] LABS: HEMATOCRIT 35.4 % (36.0-47.0); HEMOGLOBIN 11.6 g/dl (12.0-15.5); LYMPH # 1.2 10^3/uL (1.5-5.0); LYMPH % 5.7 % (24.0-44.0); MEAN CORPUSCULAR HEMOGLOBIN 28.6 pg (27.0-33.0); MEAN CORPUSCULAR HGB CONC 32.8 g/dl (32.0-36.5); MEAN CORPUSCULAR VOLUME 87.2 fl (80.0-96.0); MONO # 0.3 10^3/uL (0.0-0.8); MONO % 1.3 % (2.0-8.0); NEUTROPHILS # 18.8 10^3/uL (1.5-8.5); NEUTROPHILS % 92.2 % (36.0-66.0); PLATELET COUNT, AUTOMATED 571 10^3/uL (150-450); RED BLOOD COUNT 4.06 10^6/uL (4.00-5.40); WHITE BLOOD COUNT 20.4 10^3/uL (4.0-10.0)
[2023-10-23 07:56] LABS: ALBUMIN 3.3 G/DL (3.2-5.2); ALKALINE PHOSPHATASE 82 U/L (46-116); ALT/SGPT 16 U/L (7.0-40); AST/SGOT 14 U/L (<34); BILIRUBIN,TOTAL 0.4 MG/DL (0.3-1.2); BLOOD UREA NITROGEN 25 MG/DL (9-23); CARBON DIOXIDE LEVEL 23 MMOL/L (20-31); CHLORIDE LEVEL 99 MMOL/L (98-107); CREATININE FOR GFR 0.82 MG/DL (0.55-1.30); GLOMERULAR FILTRATION RATE > 60.0 (>32); GLUCOSE, FASTING 155 MG/DL (74-106); MAGNESIUM LEVEL 1.9 MG/DL (1.8-2.4); POTASSIUM SERUM 4.6 MMOL/L (3.5-5.1); SODIUM LEVEL 131 MMOL/L (136-145); TOTAL PROTEIN 5.4 G/DL (5.7-8.2)
[2023-10-23] MEDS ORDERED: ALBU2.5V10 INH (08:35)
[2023-10-23] MEDS ORDERED: AMLO2.5T3 PO (08:35)
[2023-10-23] MEDS ORDERED: PARO20TA4 PO (08:35)
[2023-10-23] MEDS ORDERED: ACET650T61 PO (08:35)
[2023-10-23] MEDS ORDERED: HOME MED LIST COMPLETE! XX SCH (08:40)
[2023-10-23] MEDS: ENOXAPARIN 40MG/0.4ML SYRINGE (J1650 PER 10MG) SC SCH (09:10)
[2023-10-23] MEDS: predniSONE 20 MG TAB PO SCH (09:10)
[2023-10-23 11:10] LABS: PROCALCITONIN 0.04 ng/ml
[2023-10-23] MEDS: PARoxetine 20MG TABLET PO SCH (12:03)
[2023-10-23] MEDS: NYSTATIN 500,000U/5ML SUSP UDC SS SCH ×3 (12:03→20:18)
[2023-10-23 14:00] VITALS: BP 150/78; TEMP 97.7; O2SAT 93
[2023-10-23] MEDS ORDERED: LATANOPROST 0.005% OPHTH SOLN 2.5 ML OU SCH (21:00)
[2023-10-23 21:07] VITALS: BP 145/88; TEMP 98.1; O2SAT 93
[2023-10-24] MEDS: IPRATROPIUM 0.5MG/ALBUTEROL 2.5MG INH SOL UD 3ML (DUONEB) NEB SCH ×2 (01:06→07:53)
[2023-10-24 06:00] VITALS: BP 130/83; TEMP 97.9; O2SAT 95
[2023-10-24 07:00] LABS: HEMOGLOBIN 11.2 g/dl (12.0-15.5); MEAN CORPUSCULAR HEMOGLOBIN 29.1 pg (27.0-33.0); MEAN CORPUSCULAR HGB CONC 32.9 g/dl (32.0-36.5); MEAN CORPUSCULAR VOLUME 88.3 fl (80.0-96.0); PLATELET COUNT, AUTOMATED 508 10^3/uL (150-450); RED BLOOD COUNT 3.85 10^6/uL (4.00-5.40); WHITE BLOOD COUNT 27.2 10^3/uL (4.0-10.0)
[2023-10-24 07:20] LABS: CALCIUM LEVEL 8.8 MG/DL (8.3-10.6); CREATININE FOR GFR 0.96 MG/DL (0.55-1.30); GLOMERULAR FILTRATION RATE 58.5 (>32); POTASSIUM SERUM 4.1 MMOL/L (3.5-5.1)
[2023-10-24 07:50] VITALS: O2SAT 95
[2023-10-24 08:57] VITALS: BP 144/85
[2023-10-24 09:09] VITALS: BP 144/85
[2023-10-24] MEDS: PARoxetine 20MG TABLET PO SCH (09:09)
[2023-10-24] MEDS: predniSONE 20 MG TAB PO SCH (09:09)
[2023-10-24] MEDS: NYSTATIN 500,000U/5ML SUSP UDC SS SCH ×2 (09:09→13:09)
[2023-10-24] MEDS: DOXYCYCLINE HYCLATE 100MG TABLET PO SCH (09:09)
[2023-10-24] MEDS: ENOXAPARIN 40MG/0.4ML SYRINGE (J1650 PER 10MG) SC SCH (09:10)
[2023-10-24] MEDS ORDERED: PRED10TA2 PO (12:38)
[2023-10-24] MEDS ORDERED: NYST-38 SS (12:38)
[2023-10-24] MEDS ORDERED: DOXY100T PO (12:38)
[2023-10-24] MEDS ORDERED: CEFD300CAP PO (12:38)
== END 2023-10-24 14:00 | disposition home or self-care (01) | DRG 190 ==
LOC: M ED 18:36 → M ED INP 23:20 → M MS5PR 10-23 02:19
PROVIDERS: ADMIT Family Medicine; ATTEND Family Medicine
DX: J44.1 Chronic obstructive pulmonary disease with (acute) exacerbation (principal); J15.9 Unspecified bacterial pneumonia; J12.9 Viral pneumonia, unspecified; B37.0 Candidal stomatitis; I10 Essential (primary) hypertension; J44.0 Chronic obstructive pulmonary disease with (acute) lower respiratory infection; E87.5 Hyperkalemia; K57.90 Diverticulosis of intestine, part unspecified, without perforation or abscess without bleeding; K21.00 Gastro-esophageal reflux disease with esophagitis, without bleeding; F41.9 Anxiety disorder, unspecified; M19.90 Unspecified osteoarthritis, unspecified site; M75.101 Unspecified rotator cuff tear or rupture of right shoulder, not specified as traumatic; Z98.41 Cataract extraction status, right eye; Z98.42 Cataract extraction status, left eye; Z90.49 Acquired absence of other specified parts of digestive tract; Z87.891 Personal history of nicotine dependence; Z99.81 Dependence on supplemental oxygen

== ENCOUNTER 2023-11-01 18:38 | Inpatient (IN) | payer MEDICARE ==
[~2023-11-01] VITALS: Ht 157.5 cm; Wt 58.2 kg
[~2023-11-01 18:38] MED LIST changes: +ALBU2.5V10 INH; +AMLO2.5T3 PO; +CEFD300CAP PO; +DOXY100T PO; +NYST-38 SS; +PARO20TA4 PO
[2023-11-01 19:48] LABS: BASO % 0.1 % (0.0-1.0); HEMATOCRIT 41.7 % (36.0-47.0); HEMOGLOBIN 13.7 g/dl (12.0-15.5); LYMPH # 2.7 10^3/uL (1.5-5.0); LYMPH % 13.6 % (24.0-44.0); MEAN CORPUSCULAR HEMOGLOBIN 29.5 pg (27.0-33.0); MEAN CORPUSCULAR HGB CONC 32.9 g/dl (32.0-36.5); MEAN CORPUSCULAR VOLUME 89.9 fl (80.0-96.0); MONO # 1.1 10^3/uL (0.0-0.8); MONO % 5.5 % (2.0-8.0); NEUTROPHILS # 16.1 10^3/uL (1.5-8.5); NEUTROPHILS % 80.1 % (36.0-66.0); PLATELET COUNT, AUTOMATED 421 10^3/uL (150-450); RED BLOOD COUNT 4.64 10^6/uL (4.00-5.40); WHITE BLOOD COUNT 20.1 10^3/uL (4.0-10.0)
[2023-11-01] MEDS ORDERED: methylPREDNISolone 125MG 2ML VIAL IV ONE (20:10)
[2023-11-01 20:13] LABS: ALBUMIN 3.7 G/DL (3.2-5.2); BILIRUBIN,DIRECT 0.1 MG/DL (<0.4); BILIRUBIN,TOTAL 0.5 MG/DL (0.3-1.2); CALCIUM LEVEL 9.7 MG/DL (8.3-10.6); CREATININE FOR GFR 1.08 MG/DL (0.55-1.30); GLOMERULAR FILTRATION RATE 51.1 (>32); MB/CK RELATIVE INDEX 5.71 (< OR =4); POTASSIUM SERUM 4.9 MMOL/L (3.5-5.1); TOTAL PROTEIN 6.1 G/DL (5.7-8.2)
[2023-11-01 20:15] LABS: THYROID STIMULATING HORMONE 1.199 uIU/ML (0.55-4.78)
[2023-11-01 20:19] LABS: PROCALCITONIN 0.13 ng/ml
[2023-11-01] MEDS: IPRATROPIUM 0.5MG/ALBUTEROL 2.5MG INH SOL UD 3ML (DUONEB) NEB PRN ×2 (20:31→21:53)
[2023-11-01 20:51] LABS: ABG BASE EXCESS -3.7 (-2.0-2.0); ABG HCO3 19.9 MMOL/L (22.0-26.0); ABG O2 SATURATION 90.4 % (95.0-99.0); ABG PARTIAL PRESSURE CO2 31.9 mmHg (35.0-45.0); ABG PARTIAL PRESSURE O2 56.1 mmHg (75.0-100.0); ABG STANDARD HCO3 21.3 MMOL/L. (22.0-26.0); ABG TOTAL CO2 20.9 MMOL/L (23.0-31.0); ABG pH (ARTERIAL) 7.413 UNITS (7.350-7.450)
[2023-11-01] MEDS ORDERED: NS 500 ML IV ONE (21:40)
[2023-11-01] MEDS ORDERED: AZELASTINE 137MCG NASAL SPY 30 ML (ASTELIN) SCH (23:30)
[2023-11-01] MEDS ORDERED: ACETAMINOPHEN TAB 650MG DOSE (2X325MG) PO PRN (23:30)
[2023-11-02] MEDS ORDERED: IPRA0.00 INH (00:43)
[2023-11-02] MEDS ORDERED: CALC-364 PO (00:43)
[2023-11-02] MEDS ORDERED: PRED10TA2 PO (00:43)
[2023-11-02] MEDS ORDERED: NYST-38 SSP (00:43)
[2023-11-02] MEDS ORDERED: MUCI600T31 PO (00:43)
[2023-11-02] MEDS ORDERED: PANT-23 PO (00:43)
[2023-11-02] MEDS ORDERED: CHEL50TA2 PO (00:43)
[2023-11-02 00:45] LABS: CALCIUM LEVEL 8.6 MG/DL (8.3-10.6); CREATININE FOR GFR 0.99 MG/DL (0.55-1.30); GLOMERULAR FILTRATION RATE 56.5 (>32); POTASSIUM SERUM 4.8 MMOL/L (3.5-5.1)
[2023-11-02] MEDS ORDERED: HOME MED LIST COMPLETE! XX SCH (00:45)
[2023-11-02] MEDS ORDERED: ALBUTEROL 90 MCG/ACT 8GM HFA INHALER INH PRN (01:40)
[2023-11-02] MEDS: IPRATROPIUM 0.5MG/ALBUTEROL 2.5MG INH SOL UD 3ML (DUONEB) NEB SCH ×4 (02:00→20:09)
[2023-11-02] MEDS ORDERED: NS 1,000 ML IV ONE (02:10)
[2023-11-02] MEDS: guaiFENesin ER TABLET 600 MG TAB PO SCH ×3 (02:28→21:55)
[2023-11-02] MEDS: methylPREDNISolone 40MG 1ML VIAL IV SCH ×2 (04:46→08:56)
[2023-11-02] MEDS: ALBUTEROL SULFATE 2.5MG/0.5ML INH NEB SOLN NEB PRN (06:16)
[2023-11-02] MEDS ORDERED: ACETAMINOPHEN TAB 650MG DOSE (2X325MG) PO PRN (07:45)
[2023-11-02] MEDS ORDERED: CALCIUM CARBONATE 500 MG CHEW U/D PO PRN ×2 (07:45→16:00)
[2023-11-02] MEDS: ADVAIR HFA 115/21MCG INHALER INH SCH ×2 (08:00→20:09)
[2023-11-02] MEDS: ENOXAPARIN 30MG/0.3ML SYRINGE (J1650 PER 10MG) SC SCH (08:03)
[2023-11-02] MEDS: PARoxetine 20MG TABLET PO SCH (08:04)
[2023-11-02 08:21] LABS: BASO % 0.1 % (0.0-1.0); HEMATOCRIT 35.8 % (36.0-47.0); LYMPH # 0.6 10^3/uL (1.5-5.0); LYMPH % 4.1 % (24.0-44.0); MEAN CORPUSCULAR HEMOGLOBIN 29.2 pg (27.0-33.0); MEAN CORPUSCULAR HGB CONC 32.7 g/dl (32.0-36.5); MEAN CORPUSCULAR VOLUME 89.3 fl (80.0-96.0); MONO # 0.1 10^3/uL (0.0-0.8); MONO % 0.6 % (2.0-8.0); NEUTROPHILS # 14.6 10^3/uL (1.5-8.5); NEUTROPHILS % 94.7 % (36.0-66.0); PLATELET COUNT, AUTOMATED 360 10^3/uL (150-450); RED BLOOD COUNT 4.01 10^6/uL (4.00-5.40); WHITE BLOOD COUNT 15.4 10^3/uL (4.0-10.0)
[2023-11-02 08:23] LABS: HEMOGLOBIN 11.7 g/dl (12.0-15.5)
[2023-11-02 08:40] LABS: BLOOD UREA NITROGEN 25 MG/DL (9-23); CALCIUM LEVEL 8.6 MG/DL (8.3-10.6); CARBON DIOXIDE LEVEL 23 MMOL/L (20-31); CHLORIDE LEVEL 103 MMOL/L (98-107); CREATININE FOR GFR 0.91 MG/DL (0.55-1.30); GLOMERULAR FILTRATION RATE > 60.0 (>32); GLUCOSE, FASTING 166 MG/DL (74-106); SODIUM LEVEL 133 MMOL/L (136-145)
[2023-11-02] MEDS: predniSONE 20 MG TAB PO SCH (09:00)
[2023-11-02] MEDS ORDERED: FLUTICASONE HFA 220 MCG 12 GM INHALER (FLOVENT) INH SCH (09:00)
[2023-11-02] MEDS ORDERED: PANTOPRAZOLE 40MG TAB (PROTONIX) PO SCH (09:00)
[2023-11-02] MEDS ORDERED: ISOVUE-370 76% 100ML VIAL As Ordered ONE (09:42)
[2023-11-02] MEDS ORDERED: LORazepam 2 MG/ML 1ML VIAL IV PRN (10:15)
[2023-11-02] MEDS: AZITHROMYCIN 250MG TABLET PO SCH (11:56)
[2023-11-02] MEDS: FAMOTIDINE 20 MG TAB PO SCH ×2 (11:57→21:55)
[2023-11-02] MEDS: SUCRALFATE 1 GM TAB PO SCH ×2 (11:57→21:55)
[2023-11-02] MEDS: TIOTROPIUM INHALER/CAPSULE (SPIRIVA) INH SCH (14:11)
[2023-11-02 16:36] VITALS: O2SAT 97
[2023-11-02 20:10] VITALS: BP 163/72; TEMP 97.8; O2SAT 97
[2023-11-02 20:26] VITALS: O2SAT 96
[2023-11-02] MEDS ORDERED: SODIUM CHLORIDE NASAL 0.65% SPRAY BTL (OCEAN) PRN (20:35)
[2023-11-02] MEDS ORDERED: LATANOPROST 0.005% OPHTH SOLN 2.5 ML OU SCH (21:00)
[2023-11-03] VITALS (7 sets, daily range): BP systolic 126–137; BP diastolic 67–84; TEMP 97.6–98.6; O2SAT 93–98
[2023-11-03] MEDS: IPRATROPIUM 0.5MG/ALBUTEROL 2.5MG INH SOL UD 3ML (DUONEB) NEB SCH ×4 (01:00→20:13)
[2023-11-03 06:51] LABS: BASO % 0.1 % (0.0-1.0); HEMOGLOBIN 9.9 g/dl (12.0-15.5); LYMPH # 0.8 10^3/uL (1.5-5.0); LYMPH % 3.6 % (24.0-44.0); MEAN CORPUSCULAR HEMOGLOBIN 29.5 pg (27.0-33.0); MEAN CORPUSCULAR VOLUME 89.3 fl (80.0-96.0); MONO # 0.9 10^3/uL (0.0-0.8); MONO % 4.3 % (2.0-8.0); NEUTROPHILS # 19.1 10^3/uL (1.5-8.5); NEUTROPHILS % 91.4 % (36.0-66.0); PLATELET COUNT, AUTOMATED 284 10^3/uL (150-450); RED BLOOD COUNT 3.36 10^6/uL (4.00-5.40); WHITE BLOOD COUNT 20.9 10^3/uL (4.0-10.0)
[2023-11-03 07:20] LABS: CALCIUM LEVEL 8.3 MG/DL (8.3-10.6); CREATININE FOR GFR 0.98 MG/DL (0.55-1.30); GLOMERULAR FILTRATION RATE 57.2 (>32); MAGNESIUM LEVEL 2.2 MG/DL (1.8-2.4); POTASSIUM SERUM 4.2 MMOL/L (3.5-5.1)
[2023-11-03] MEDS: ADVAIR HFA 115/21MCG INHALER INH SCH ×2 (08:15→20:13)
[2023-11-03] MEDS: TIOTROPIUM INHALER/CAPSULE (SPIRIVA) INH SCH (08:15)
[2023-11-03] MEDS: FAMOTIDINE 20 MG TAB PO SCH ×2 (09:30→20:59)
[2023-11-03] MEDS: SUCRALFATE 1 GM TAB PO SCH ×2 (09:30→20:59)
[2023-11-03] MEDS: AZITHROMYCIN 250MG TABLET PO SCH (09:30)
[2023-11-03] MEDS: guaiFENesin ER TABLET 600 MG TAB PO SCH ×2 (09:30→20:59)
[2023-11-03] MEDS: PARoxetine 20MG TABLET PO SCH (09:30)
[2023-11-03] MEDS: predniSONE 20 MG TAB PO SCH (09:30)
[2023-11-03] MEDS: ENOXAPARIN 30MG/0.3ML SYRINGE (J1650 PER 10MG) SC SCH (09:31)
[2023-11-04] MEDS: IPRATROPIUM 0.5MG/ALBUTEROL 2.5MG INH SOL UD 3ML (DUONEB) NEB SCH ×4 (00:43→19:08)
[2023-11-04] MEDS: ALBUTEROL SULFATE 2.5MG/0.5ML INH NEB SOLN NEB PRN (05:10)
[2023-11-04 06:08] VITALS: BP 154/74; TEMP 98.5; O2SAT 94
[2023-11-04 06:32] LABS: BASO % 0.1 % (0.0-1.0); EOS % 0.1 % (0.0-3.0); LYMPH # 2.2 10^3/uL (1.5-5.0); LYMPH % 10.3 % (24.0-44.0); MEAN CORPUSCULAR HEMOGLOBIN 29.9 pg (27.0-33.0); MEAN CORPUSCULAR HGB CONC 33.2 g/dl (32.0-36.5); MEAN CORPUSCULAR VOLUME 89.8 fl (80.0-96.0); MONO # 1.5 10^3/uL (0.0-0.8); MONO % 7.2 % (2.0-8.0); NEUTROPHILS # 17.2 10^3/uL (1.5-8.5); NEUTROPHILS % 81.6 % (36.0-66.0); PLATELET COUNT, AUTOMATED 352 10^3/uL (150-450); RED BLOOD COUNT 4.02 10^6/uL (4.00-5.40); WHITE BLOOD COUNT 21.1 10^3/uL (4.0-10.0)
[2023-11-04 06:43] LABS: HEMATOCRIT 36.1 % (36.0-47.0)
[2023-11-04 06:53] LABS: BLOOD UREA NITROGEN 17 MG/DL (9-23); CALCIUM LEVEL 8.6 MG/DL (8.3-10.6); CARBON DIOXIDE LEVEL 26 MMOL/L (20-31); CHLORIDE LEVEL 102 MMOL/L (98-107); CREATININE FOR GFR 0.93 MG/DL (0.55-1.30); GLOMERULAR FILTRATION RATE > 60.0 (>32); GLUCOSE, FASTING 78 MG/DL (74-106); MAGNESIUM LEVEL 2.1 MG/DL (1.8-2.4); POTASSIUM SERUM 3.9 MMOL/L (3.5-5.1); SODIUM LEVEL 137 MMOL/L (136-145)
[2023-11-04 08:06] VITALS: O2SAT 95
[2023-11-04] MEDS: TIOTROPIUM INHALER/CAPSULE (SPIRIVA) INH SCH (08:06)
[2023-11-04] MEDS: ADVAIR HFA 115/21MCG INHALER INH SCH ×2 (08:07→19:09)
[2023-11-04 08:44] LABS: PROCALCITONIN 0.11 ng/ml
[2023-11-04] MEDS: SODIUM CHLORIDE NASAL 0.65% SPRAY BTL (OCEAN) SCH ×2 (09:00→20:41)
[2023-11-04] MEDS: SUCRALFATE 1 GM TAB PO SCH (09:20)
[2023-11-04] MEDS: FAMOTIDINE 20 MG TAB PO SCH ×2 (09:20→20:39)
[2023-11-04] MEDS: guaiFENesin ER TABLET 600 MG TAB PO SCH ×2 (09:21→20:39)
[2023-11-04] MEDS: PARoxetine 20MG TABLET PO SCH (09:21)
[2023-11-04] MEDS: AZITHROMYCIN 250MG TABLET PO SCH (09:21)
[2023-11-04] MEDS: predniSONE 20 MG TAB PO SCH (09:21)
[2023-11-04] MEDS: ENOXAPARIN 30MG/0.3ML SYRINGE (J1650 PER 10MG) SC SCH (09:22)
[2023-11-04] MEDS: BACTRIM 160MG/800MG DS TAB PO SCH ×2 (11:17→20:39)
[2023-11-04 14:30] VITALS: BP 155/72; TEMP 98.7; O2SAT 92
[2023-11-04 19:12] VITALS: O2SAT 95
[2023-11-04] MEDS: SUCRALFATE SUSP 1GM/10ML UD PO SCH (21:47)
[2023-11-05] MEDS: ALBUTEROL SULFATE 2.5MG/0.5ML INH NEB SOLN NEB PRN (00:48)
[2023-11-05 05:41] VITALS: BP 146/70; TEMP 96.7; O2SAT 95
[2023-11-05] MEDS: IPRATROPIUM 0.5MG/ALBUTEROL 2.5MG INH SOL UD 3ML (DUONEB) NEB SCH ×3 (06:07→22:26)
[2023-11-05 06:08] VITALS: O2SAT 94
[2023-11-05 06:24] LABS: BASO % 0.1 % (0.0-1.0); EOS % 0.2 % (0.0-3.0); HEMATOCRIT 33.8 % (36.0-47.0); HEMOGLOBIN 11.3 g/dl (12.0-15.5); LYMPH # 1.7 10^3/uL (1.5-5.0); LYMPH % 9.4 % (24.0-44.0); MEAN CORPUSCULAR HEMOGLOBIN 29.7 pg (27.0-33.0); MEAN CORPUSCULAR HGB CONC 33.4 g/dl (32.0-36.5); MEAN CORPUSCULAR VOLUME 88.7 fl (80.0-96.0); MONO # 1.4 10^3/uL (0.0-0.8); MONO % 7.8 % (2.0-8.0); NEUTROPHILS # 14.8 10^3/uL (1.5-8.5); NEUTROPHILS % 81.9 % (36.0-66.0); PLATELET COUNT, AUTOMATED 290 10^3/uL (150-450); RED BLOOD COUNT 3.81 10^6/uL (4.00-5.40)
[2023-11-05 06:49] LABS: CALCIUM LEVEL 8.6 MG/DL (8.3-10.6); CREATININE FOR GFR 1.07 MG/DL (0.55-1.30); GLOMERULAR FILTRATION RATE 51.6 (>32)
[2023-11-05] MEDS: ADVAIR HFA 115/21MCG INHALER INH SCH ×2 (07:09→22:27)
[2023-11-05] MEDS: TIOTROPIUM INHALER/CAPSULE (SPIRIVA) INH SCH (07:09)
[2023-11-05] MEDS: BACTRIM 160MG/800MG DS TAB PO SCH ×2 (09:20→21:13)
[2023-11-05] MEDS: FAMOTIDINE 20 MG TAB PO SCH ×2 (09:20→21:13)
[2023-11-05] MEDS: SUCRALFATE SUSP 1GM/10ML UD PO SCH ×2 (09:20→21:12)
[2023-11-05] MEDS: predniSONE 20 MG TAB PO SCH (09:20)
[2023-11-05] MEDS: ENOXAPARIN 30MG/0.3ML SYRINGE (J1650 PER 10MG) SC SCH (09:22)
[2023-11-05] MEDS: PARoxetine 20MG TABLET PO SCH (09:22)
[2023-11-05] MEDS: guaiFENesin ER TABLET 600 MG TAB PO SCH ×2 (09:22→21:13)
[2023-11-05] MEDS: SODIUM CHLORIDE NASAL 0.65% SPRAY BTL (OCEAN) SCH ×2 (09:23→21:13)
[2023-11-05] MEDS: LEVALBUTEROL 1.25MG 0.5ML CONCENTRATE NEB INH PRN (18:50)
[2023-11-06 05:51] VITALS: BP 116/70; TEMP 96.9; O2SAT 96
[2023-11-06] MEDS: IPRATROPIUM 0.5MG/ALBUTEROL 2.5MG INH SOL UD 3ML (DUONEB) NEB SCH ×2 (06:09→14:40)
[2023-11-06 06:14] VITALS: O2SAT 95
[2023-11-06 06:45] LABS: CALCIUM LEVEL 9.1 MG/DL (8.3-10.6); CREATININE FOR GFR 1.1 MG/DL (0.55-1.30)
[2023-11-06] MEDS: ADVAIR HFA 115/21MCG INHALER INH SCH ×2 (07:21→20:49)
[2023-11-06] MEDS: TIOTROPIUM INHALER/CAPSULE (SPIRIVA) INH SCH (07:21)
[2023-11-06] MEDS ORDERED: PATIROMER SORBITEX CALCIUM 8.4 GM POWDER PACKET (VELTASSA) PO ONE (08:00)
[2023-11-06] MEDS: ENOXAPARIN 30MG/0.3ML SYRINGE (J1650 PER 10MG) SC SCH (09:23)
[2023-11-06] MEDS: FAMOTIDINE 20 MG TAB PO SCH ×2 (09:23→21:25)
[2023-11-06] MEDS: BACTRIM 160MG/800MG DS TAB PO SCH ×2 (09:24→21:24)
[2023-11-06] MEDS: PARoxetine 20MG TABLET PO SCH (09:24)
[2023-11-06] MEDS: SODIUM CHLORIDE NASAL 0.65% SPRAY BTL (OCEAN) SCH ×2 (09:24→21:25)
[2023-11-06] MEDS: guaiFENesin ER TABLET 600 MG TAB PO SCH ×2 (09:24→21:24)
[2023-11-06] MEDS: predniSONE 20 MG TAB PO SCH (09:24)
[2023-11-06] MEDS: SUCRALFATE SUSP 1GM/10ML UD PO SCH ×2 (09:42→21:24)
[2023-11-06] MEDS: LEVALBUTEROL 1.25MG 0.5ML CONCENTRATE NEB INH PRN ×2 (10:31→20:48)
[2023-11-06 20:54] VITALS: O2SAT 95
[2023-11-06 21:00] VITALS: BP 132/76; TEMP 98.3; O2SAT 92
[2023-11-06] MEDS ORDERED: LEVALBUTEROL HFA 45MCG/ACT 15GM INHALER INH PRN (22:10)
[2023-11-06] MEDS ORDERED: BISACODYL 10MG SUPP PR PRN (22:10)
[2023-11-06] MEDS ORDERED: MIRALAX *UNIT DOSE* 17GM PACKET PO PRN (22:10)
[2023-11-07] MEDS: IPRATROPIUM 0.5MG/ALBUTEROL 2.5MG INH SOL UD 3ML (DUONEB) NEB SCH ×2 (00:04→06:24)
[2023-11-07] MEDS: TIOTROPIUM INHALER/CAPSULE (SPIRIVA) INH SCH (07:43)
[2023-11-07] MEDS: ADVAIR HFA 115/21MCG INHALER INH SCH (07:43)
[2023-11-07] MEDS ORDERED: IPRATROPIUM 0.5MG/ALBUTEROL 2.5MG INH SOL UD 3ML (DUONEB) NEB SCH (08:00)
[2023-11-07] MEDS ORDERED: DOCUSATE SODIUM 100MG CAPSULE PO SCH (09:00)
[2023-11-07] MEDS: SUCRALFATE SUSP 1GM/10ML UD PO SCH (10:22)
[2023-11-07] MEDS: ENOXAPARIN 30MG/0.3ML SYRINGE (J1650 PER 10MG) SC SCH (10:22)
[2023-11-07] MEDS: guaiFENesin ER TABLET 600 MG TAB PO SCH (10:25)
[2023-11-07] MEDS: BACTRIM 160MG/800MG DS TAB PO SCH (10:25)
[2023-11-07] MEDS: predniSONE 20 MG TAB PO SCH (10:25)
[2023-11-07] MEDS: FAMOTIDINE 20 MG TAB PO SCH (10:25)
[2023-11-07 10:26] VITALS: BP 132/76
[2023-11-07] MEDS: SODIUM CHLORIDE NASAL 0.65% SPRAY BTL (OCEAN) SCH (10:26)
[2023-11-07] MEDS: PARoxetine 20MG TABLET PO SCH (10:26)
[2023-11-07] MEDS: LEVALBUTEROL 1.25MG 0.5ML CONCENTRATE NEB INH PRN (11:24)
[2023-11-07] MEDS ORDERED: SUCR1ORA PO (12:03)
[2023-11-07] MEDS ORDERED: HYDR-3363 PO (12:03)
[2023-11-07] MEDS ORDERED: COLA100C5 PO (12:03)
[2023-11-07] MEDS ORDERED: AMLO1TAB25 PO (12:03)
[2023-11-07] MEDS ORDERED: BACTDSTA PO (12:03)
[2023-11-07] MEDS ORDERED: EQL0.65S NARES (12:03)
[2023-11-07] MEDS ORDERED: FAMO20TA PO (12:03)
[2023-11-07] MEDS ORDERED: PRED10TA2 PO (12:03)
== END 2023-11-07 15:45 | DRG 189 ==
LOC: EDBD 18:38 → M ED 18:38 → M ED INP 22:43 → M MS5PR 11-02 16:10
PROVIDERS: ADMIT Internal Medicine; ATTEND Internal Medicine
PROC: B246ZZZ Ultrasonography of Right and Left Heart (ICD-10-PCS; principal; 2023-11-02)
DX: J96.21 Acute and chronic respiratory failure with hypoxia (principal); J18.9 Pneumonia, unspecified organism; J44.1 Chronic obstructive pulmonary disease with (acute) exacerbation; E87.20 Acidosis, unspecified; I50.32 Chronic diastolic (congestive) heart failure; J44.0 Chronic obstructive pulmonary disease with (acute) lower respiratory infection; J96.22 Acute and chronic respiratory failure with hypercapnia; D72.829 Elevated white blood cell count, unspecified; I11.0 Hypertensive heart disease with heart failure; F32.A Depression, unspecified; J34.89 Other specified disorders of nose and nasal sinuses; M19.90 Unspecified osteoarthritis, unspecified site; I08.3 Combined rheumatic disorders of mitral, aortic and tricuspid valves; F41.9 Anxiety disorder, unspecified; M75.101 Unspecified rotator cuff tear or rupture of right shoulder, not specified as traumatic; I27.20 Pulmonary hypertension, unspecified; Z99.81 Dependence on supplemental oxygen; K21.00 Gastro-esophageal reflux disease with esophagitis, without bleeding; Z87.891 Personal history of nicotine dependence; Z79.52 Long term (current) use of systemic steroids; Z79.899 Other long term (current) drug therapy; Z88.1 Allergy status to other antibiotic agents; Z88.5 Allergy status to narcotic agent; Z88.8 Allergy status to other drugs, medicaments and biological substances

== ENCOUNTER → 2023-12-06 | Outpatient (CLI) | payer MEDICARE ==
[~2023-12-06] MED LIST changes: +AMLO1TAB25 PO; +BACTDSTA PO; +CALC-364 PO; +CHEL50TA2 PO; +COLA100C5 PO; +EQL0.65S NARES; +FAMO20TA PO; +HYDR-3363 PO; +IPRA0.00 INH; +NYST-38 SSP; +PANT-23 PO; +SUCR1ORA PO
[2023-12-06 16:00] LABS: ALBUMIN 3.7 G/DL (3.2-5.2); ALKALINE PHOSPHATASE 102 U/L (46-116); ALT/SGPT 24 U/L (7.0-40); AST/SGOT 12 U/L (<34); BILIRUBIN,TOTAL 0.5 MG/DL (0.3-1.2); BLOOD UREA NITROGEN 19 MG/DL (9-23); CARBON DIOXIDE LEVEL 29 MMOL/L (20-31); CHLORIDE LEVEL 98 MMOL/L (98-107); CREATININE FOR GFR 0.85 MG/DL (0.55-1.30); GLOMERULAR FILTRATION RATE > 60.0 (>32); GLUCOSE, FASTING 108 MG/DL (74-106); POTASSIUM SERUM 4.4 MMOL/L (3.5-5.1); SODIUM LEVEL 135 MMOL/L (136-145); TOTAL PROTEIN 6.3 G/DL (5.7-8.2)
== END ==
LOC: M PLALAB 12:53
PROVIDERS: ATTEND Nurse Practitioner Adult Health
DX: I10 Essential (primary) hypertension (principal)

== ENCOUNTER 2024-01-24 11:27 | Inpatient (IN) | payer MEDICARE ==
[~2024-01-24] VITALS: Ht 154.9 cm; Wt 59.0 kg
[2024-01-24 12:28] LABS: BASO % 0.1 % (0.0-1.0); EOS % 0.1 % (0.0-3.0); HEMATOCRIT 33.5 % (36.0-47.0); HEMOGLOBIN 10.8 g/dl (12.0-15.5); LYMPH # 0.7 10^3/uL (1.5-5.0); LYMPH % 2.9 % (24.0-44.0); MEAN CORPUSCULAR HEMOGLOBIN 27.6 pg (27.0-33.0); MEAN CORPUSCULAR HGB CONC 32.2 g/dl (32.0-36.5); MEAN CORPUSCULAR VOLUME 85.5 fl (80.0-96.0); MONO # 1.3 10^3/uL (0.0-0.8); NEUTROPHILS # 23.3 10^3/uL (1.5-8.5); NEUTROPHILS % 90.9 % (36.0-66.0); PLATELET COUNT, AUTOMATED 418 10^3/uL (150-450); RED BLOOD COUNT 3.92 10^6/uL (4.00-5.40); WHITE BLOOD COUNT 25.6 10^3/uL (4.0-10.0)
[2024-01-24 13:00] LABS: ALBUMIN 3.4 G/DL (3.2-5.2); ALKALINE PHOSPHATASE 83 U/L (46-116); ALT/SGPT 23 U/L (7.0-40); AST/SGOT 18 U/L (<34); BILIRUBIN,DIRECT 0.1 MG/DL (<0.4); BILIRUBIN,TOTAL 0.6 MG/DL (0.3-1.2); BLOOD UREA NITROGEN 31 MG/DL (9-23); CALCIUM LEVEL 9.1 MG/DL (8.3-10.6); CARBON DIOXIDE LEVEL 26 MMOL/L (20-31); CHLORIDE LEVEL 99 MMOL/L (98-107); CREATININE FOR GFR 0.89 MG/DL (0.55-1.30); GLOMERULAR FILTRATION RATE > 60.0 (>32); GLUCOSE, FASTING 216 MG/DL (74-106); SODIUM LEVEL 136 MMOL/L (136-145); TOTAL PROTEIN 5.6 G/DL (5.7-8.2)
[2024-01-24 14:06] VITALS: O2SAT 90
[2024-01-24] MEDS ORDERED: MOM 30ML SUSPENSION UDC PO PRN (15:35)
[2024-01-24] MEDS ORDERED: MAALOX 30 ML SUSP *UDC PO PRN (15:35)
[2024-01-24] MEDS ORDERED: ZINC30TA2 PO (17:00)
[2024-01-24] MEDS ORDERED: PAXI10TA13 PO (17:00)
[2024-01-24] MEDS ORDERED: PANT40TA29 PO (17:00)
[2024-01-24] MEDS ORDERED: PRED5TA PO (17:00)
[2024-01-24] MEDS ORDERED: AYR0.65S NARES (17:00)
[2024-01-24] MEDS ORDERED: HYDR-3363 PO (17:00)
[2024-01-24] MEDS ORDERED: AMLO25TA PO (17:00)
[2024-01-24] MEDS ORDERED: HOME MED LIST COMPLETE! XX SCH (17:05)
[2024-01-24] MEDS: methylPREDNISolone 40MG 1ML VIAL IV SCH (17:33)
[2024-01-24] MEDS: LEVALBUTEROL 1.25MG 0.5ML CONCENTRATE NEB INH SCH (19:23)
[2024-01-24] MEDS: BUDESONIDE 0.5 MG/2 ML INHALATION SUSPENSION NEB SCH (19:23)
[2024-01-24 19:58] LABS: HEMOGLOBIN A1c 5.4 % (4.0-6.0)
[2024-01-24 20:33] VITALS: BP 141/78; O2SAT 92
[2024-01-24] MEDS: LATANOPROST 0.005% OPHTH SOLN 2.5 ML OU SCH (21:00)
[2024-01-24] MEDS: SODIUM CHLORIDE NASAL 0.65% SPRAY BTL (OCEAN) SCH (21:00)
[2024-01-24] MEDS: PANTOPRAZOLE 40MG TAB (PROTONIX) PO SCH (21:07)
[2024-01-24] MEDS: ACETAMINOPHEN TAB 650MG DOSE (2X325MG) PO PRN (21:08)
[2024-01-24] MEDS: HEPARIN SOD (PORCINE) 5000UNITS/ML 1ML VIAL/SYRINGE SC SCH (21:08)
[2024-01-24 23:00] VITALS: BP 132/76; TEMP 98.6; O2SAT 94
[2024-01-25] VITALS (8 sets, daily range): BP systolic 140–170; BP diastolic 69–84; TEMP 97–98.6; O2SAT 94–98
[2024-01-25] MEDS: NS 1,000 ML IV ONE (06:13)
[2024-01-25 06:32] LABS: BASO % 0.1 % (0.0-1.0); HEMATOCRIT 32.2 % (36.0-47.0); HEMOGLOBIN 10.5 g/dl (12.0-15.5); LYMPH # 1.2 10^3/uL (1.5-5.0); LYMPH % 4.8 % (24.0-44.0); MEAN CORPUSCULAR HEMOGLOBIN 26.6 pg (27.0-33.0); MEAN CORPUSCULAR HGB CONC 32.6 g/dl (32.0-36.5); MEAN CORPUSCULAR VOLUME 81.7 fl (80.0-96.0); MONO # 0.7 10^3/uL (0.0-0.8); NEUTROPHILS # 21.7 10^3/uL (1.5-8.5); NEUTROPHILS % 91.3 % (36.0-66.0); PLATELET COUNT, AUTOMATED 420 10^3/uL (150-450); RED BLOOD COUNT 3.94 10^6/uL (4.00-5.40); WHITE BLOOD COUNT 23.8 10^3/uL (4.0-10.0)
[2024-01-25 06:46] LABS: ABG BASE EXCESS 0.2 (-2.0-2.0); ABG HCO3 22.4 MMOL/L (22.0-26.0); ABG O2 SATURATION 98.7 % (95.0-99.0); ABG PARTIAL PRESSURE CO2 28.5 mmHg (35.0-45.0); ABG STANDARD HCO3 24.7 MMOL/L. (22.0-26.0); ABG TOTAL CO2 23.3 MMOL/L (23.0-31.0); ABG pH (ARTERIAL) 7.513 UNITS (7.350-7.450)
[2024-01-25 06:53] LABS: CALCIUM LEVEL 9.1 MG/DL (8.3-10.6); CREATININE FOR GFR 0.95 MG/DL (0.55-1.30); GLOMERULAR FILTRATION RATE 59.2 (>32); POTASSIUM SERUM 4.3 MMOL/L (3.5-5.1)
[2024-01-25 07:04] LABS: PROCALCITONIN 0.21 ng/ml
[2024-01-25] MEDS: PARoxetine 10MG TABLET PO SCH (09:30)
[2024-01-25] MEDS: DOXYCYCLINE HYCLATE 100MG TABLET PO SCH (09:30)
[2024-01-25] MEDS: FLUTICASONE PROP 0.05% NASAL SPRAY 16 GM (FLONASE) NARES SCH (14:14)
[2024-01-25] MEDS: cefTRIAXone SOD 2 GM in D5W MINI-BAG PLUS 50 ML IV SCH (14:15)
[2024-01-25] MEDS: amLODIPine 5 MG TAB PO SCH (20:54)
[2024-01-26] MEDS: IPRATROPIUM 0.5MG/ALBUTEROL 2.5MG INH SOL UD 3ML (DUONEB) NEB PRN (06:04)
[2024-01-26 06:22] LABS: BASO % 0.1 % (0.0-1.0); HEMATOCRIT 30.3 % (36.0-47.0); HEMOGLOBIN 9.8 g/dl (12.0-15.5); LYMPH # 0.8 10^3/uL (1.5-5.0); LYMPH % 3.5 % (24.0-44.0); MEAN CORPUSCULAR HEMOGLOBIN 27.1 pg (27.0-33.0); MEAN CORPUSCULAR HGB CONC 32.3 g/dl (32.0-36.5); MEAN CORPUSCULAR VOLUME 83.9 fl (80.0-96.0); MONO # 0.7 10^3/uL (0.0-0.8); MONO % 3.2 % (2.0-8.0); NEUTROPHILS # 21.5 10^3/uL (1.5-8.5); NEUTROPHILS % 92.3 % (36.0-66.0); PLATELET COUNT, AUTOMATED 394 10^3/uL (150-450); RED BLOOD COUNT 3.61 10^6/uL (4.00-5.40); WHITE BLOOD COUNT 23.3 10^3/uL (4.0-10.0)
[2024-01-26 06:49] LABS: BLOOD UREA NITROGEN 29 MG/DL (9-23); CALCIUM LEVEL 8.4 MG/DL (8.3-10.6); CARBON DIOXIDE LEVEL 26 MMOL/L (20-31); CHLORIDE LEVEL 105 MMOL/L (98-107); CREATININE FOR GFR 0.85 MG/DL (0.55-1.30); GLOMERULAR FILTRATION RATE > 60.0 (>32); GLUCOSE, FASTING 136 MG/DL (74-106); MAGNESIUM LEVEL 1.9 MG/DL (1.8-2.4); POTASSIUM SERUM 4.6 MMOL/L (3.5-5.1); SODIUM LEVEL 138 MMOL/L (136-145)
[2024-01-26 08:24] VITALS: BP 146/70; TEMP 98.3; O2SAT 96
[2024-01-26 15:41] VITALS: BP 137/65; TEMP 97.2; O2SAT 95
[2024-01-26 19:19] VITALS: BP 155/71; TEMP 97.2; O2SAT 92
[2024-01-27] VITALS (8 sets, daily range): BP systolic 125–188; BP diastolic 70–84; TEMP 97.5–98.2; O2SAT 93–99
[2024-01-27 05:48] LABS: BASO % 0.1 % (0.0-1.0); HEMATOCRIT 29.5 % (36.0-47.0); HEMOGLOBIN 9.6 g/dl (12.0-15.5); LYMPH # 0.9 10^3/uL (1.5-5.0); LYMPH % 4.8 % (24.0-44.0); MEAN CORPUSCULAR HGB CONC 32.5 g/dl (32.0-36.5); MEAN CORPUSCULAR VOLUME 82.9 fl (80.0-96.0); MONO # 0.6 10^3/uL (0.0-0.8); MONO % 3.3 % (2.0-8.0); NEUTROPHILS # 17.1 10^3/uL (1.5-8.5); NEUTROPHILS % 90.6 % (36.0-66.0); PLATELET COUNT, AUTOMATED 394 10^3/uL (150-450); RED BLOOD COUNT 3.56 10^6/uL (4.00-5.40); WHITE BLOOD COUNT 18.8 10^3/uL (4.0-10.0)
[2024-01-27 06:11] LABS: BLOOD UREA NITROGEN 32 MG/DL (9-23); CALCIUM LEVEL 8.8 MG/DL (8.3-10.6); CARBON DIOXIDE LEVEL 26 MMOL/L (20-31); CHLORIDE LEVEL 105 MMOL/L (98-107); CREATININE FOR GFR 0.85 MG/DL (0.55-1.30); GLOMERULAR FILTRATION RATE > 60.0 (>32); GLUCOSE, FASTING 148 MG/DL (74-106); MAGNESIUM LEVEL 1.8 MG/DL (1.8-2.4); POTASSIUM SERUM 4.6 MMOL/L (3.5-5.1); SODIUM LEVEL 139 MMOL/L (136-145)
[2024-01-27] MEDS: **hydrALAZINE** 10 MG TAB PO ONE (13:31)
[2024-01-28 04:21] VITALS: BP_SYST 168; BP_SYST 170; BP_DIAS 62; BP_DIAS 72; TEMP 97.6; O2SAT 94
[2024-01-28 05:07] LABS: BASO % 0.1 % (0.0-1.0); HEMATOCRIT 33.5 % (36.0-47.0); HEMOGLOBIN 10.6 g/dl (12.0-15.5); LYMPH % 6.1 % (24.0-44.0); MEAN CORPUSCULAR HEMOGLOBIN 26.7 pg (27.0-33.0); MEAN CORPUSCULAR HGB CONC 31.6 g/dl (32.0-36.5); MEAN CORPUSCULAR VOLUME 84.4 fl (80.0-96.0); MONO # 0.7 10^3/uL (0.0-0.8); MONO % 4.4 % (2.0-8.0); NEUTROPHILS # 14.9 10^3/uL (1.5-8.5); NEUTROPHILS % 88.2 % (36.0-66.0); PLATELET COUNT, AUTOMATED 443 10^3/uL (150-450); RED BLOOD COUNT 3.97 10^6/uL (4.00-5.40); WHITE BLOOD COUNT 16.9 10^3/uL (4.0-10.0)
[2024-01-28 08:21] VITALS: BP 152/79; TEMP 97.5; O2SAT 99
[2024-01-28] MEDS: FLUTICASONE PROP 0.05% NASAL SPRAY 16 GM (FLONASE) NARES SCH (09:42)
[2024-01-28 09:43] VITALS: BP 152/79
[2024-01-28] MEDS: **hydrALAZINE** 10 MG TAB PO SCH (10:04)
[2024-01-28] MEDS ORDERED: HYDR-161 PO (11:37)
[2024-01-28] MEDS ORDERED: AMLO1TAB24 PO (11:37)
[2024-01-28] MEDS ORDERED: DOXY100T PO (11:37)
[2024-01-28] MEDS ORDERED: FLUTISP NARES (11:37)
== END 2024-01-28 13:43 | disposition home health service (06) | DRG 190 ==
LOC: EDBD 11:27 → M ED 12:21 → M ED INP 15:33 → M PCU 20:28 → OBSVTOIN 01-25 09:45
PROVIDERS: ADMIT Student in an Organized Health Care Education/Training Program; ATTEND Student in an Organized Health Care Education/Training Program
DX: J44.1 Chronic obstructive pulmonary disease with (acute) exacerbation (principal); J18.9 Pneumonia, unspecified organism; J96.11 Chronic respiratory failure with hypoxia; J98.11 Atelectasis; E87.20 Acidosis, unspecified; I10 Essential (primary) hypertension; K57.90 Diverticulosis of intestine, part unspecified, without perforation or abscess without bleeding; J44.0 Chronic obstructive pulmonary disease with (acute) lower respiratory infection; K21.00 Gastro-esophageal reflux disease with esophagitis, without bleeding; F41.9 Anxiety disorder, unspecified; J31.0 Chronic rhinitis; M19.90 Unspecified osteoarthritis, unspecified site; Z90.49 Acquired absence of other specified parts of digestive tract; Z98.41 Cataract extraction status, right eye; Z98.42 Cataract extraction status, left eye; Z96.692 Finger-joint replacement of left hand; Z87.891 Personal history of nicotine dependence; Z99.81 Dependence on supplemental oxygen; Z79.52 Long term (current) use of systemic steroids; Z79.899 Other long term (current) drug therapy; Z88.5 Allergy status to narcotic agent; Z88.1 Allergy status to other antibiotic agents; Z88.8 Allergy status to other drugs, medicaments and biological substances; Z91.040 Latex allergy status; Z91.048 Other nonmedicinal substance allergy status

== ENCOUNTER → 2024-05-17 | Outpatient (CLI) | payer MEDICARE ==
[~2024-05-17] MED LIST changes: +AMLO1TAB24 PO; +AMLO25TA PO; +AYR0.65S NARES; +CALC-211 PO; +D400400C PO; +FLUT15.820 NARES; +FLUTISP NARES; +HYDR-161 PO; +PAXI10TA13 PO; +PRED5TA PO; +SODIGEL TOP; +ZINC30TA2 PO
[2024-05-17 16:17] LABS: ALBUMIN 3.6 G/DL (3.2-5.2); BILIRUBIN,TOTAL 0.5 MG/DL (0.3-1.2); CALCIUM LEVEL 10.2 MG/DL (8.3-10.6); CREATININE FOR GFR 1.19 MG/DL (0.55-1.30); GLOMERULAR FILTRATION RATE 45.6 (>32); POTASSIUM SERUM 4.8 MMOL/L (3.5-5.1); TOTAL PROTEIN 5.8 G/DL (5.7-8.2)
== END ==
LOC: M PLALAB 13:54
PROVIDERS: ATTEND Nurse Practitioner Adult Health
DX: E87.5 Hyperkalemia (principal)

== ENCOUNTER 2024-05-21 13:19 | Outpatient (RCR) | payer MEDICARE | END 2024-06-16 | LOC: M PT 13:19 | PROVIDERS: ATTEND Nurse Practitioner Adult Health | DX: J44.9 Chronic obstructive pulmonary disease, unspecified (principal); Z99.3 Dependence on wheelchair ==

== ENCOUNTER → 2024-06-14 | Outpatient (CLI) | payer MEDICARE | LOC: M PLAIMG 10:13 | PROVIDERS: ATTEND Internal Medicine Pulmonary Disease | DX: R91.8 Other nonspecific abnormal finding of lung field (principal) ==

== ENCOUNTER → 2024-09-05 | Outpatient (CLI) | payer MEDICARE ==
[2024-09-05 14:12] LABS: HEMATOCRIT 34.3 % (36.0-47.0); HEMOGLOBIN 10.8 g/dl (12.0-15.5); MEAN CORPUSCULAR HGB CONC 31.5 g/dl (32.0-36.5); MEAN CORPUSCULAR VOLUME 85.8 fl (80.0-96.0); PLATELET COUNT, AUTOMATED 408 10^3/uL (150-450); WHITE BLOOD COUNT 11.6 10^3/uL (4.0-10.0)
[2024-09-05 14:35] LABS: ALBUMIN 3.1 G/DL (3.2-5.2); BILIRUBIN,TOTAL 0.4 MG/DL (0.3-1.2); CALCIUM LEVEL 9.3 MG/DL (8.3-10.6); CHOLESTEROL RISK RATIO 3.23 (<5); CREATININE FOR GFR 1.07 MG/DL (0.55-1.30); GLOMERULAR FILTRATION RATE 51.5 (>32); LDL CHOLESTEROL 102.6 MG/DL (<100); POTASSIUM SERUM 4.4 MMOL/L (3.5-5.1); TOTAL PROTEIN 5.6 G/DL (5.7-8.2)
== END ==
LOC: M PLALAB 10:21
PROVIDERS: ATTEND Nurse Practitioner Adult Health
DX: E87.5 Hyperkalemia (principal); E78.00 Pure hypercholesterolemia, unspecified

== ENCOUNTER → 2024-10-01 | Outpatient (CLI) | payer MEDICARE | LOC: M PLAIMG 12:04 | PROVIDERS: ATTEND Physician Assistant | DX: J44.9 Chronic obstructive pulmonary disease, unspecified (principal) ==

== ENCOUNTER 2025-05-04 12:37 | Inpatient (IN) | payer MEDICARE ==
[~2025-05-04] VITALS: Ht 152.4 cm; Wt 61.8 kg
[~2025-05-04 12:37] MED LIST changes: -GALZ50CA PO; +ZINC50CA4 PO
[2025-05-04] MEDS ORDERED: GABA-1171 PO (13:05)
[2025-05-04] MEDS ORDERED: LISI40TA10 PO (13:05)
[2025-05-04 13:08] LABS: BASO # 0.1 10^3/uL (0.0-0.2); BASO % 0.3 % (0.0-1.0); EOS # 0.1 10^3/uL (0.0-0.5); EOS % 0.4 % (0.0-3.0); LYMPH # 3.2 10^3/uL (1.5-5.0); LYMPH % 20.5 % (24.0-44.0); MONO # 1.3 10^3/uL (0.0-0.8); MONO % 8.2 % (2.0-8.0); NEUTROPHILS # 10.8 10^3/uL (1.5-8.5); NEUTROPHILS % 70.1 % (36.0-66.0); PLATELET COUNT, AUTOMATED 386 10^3/uL (150-450)
[2025-05-04 13:10] LABS: VENOUS BASE EXCESS -1.5 (-2.0-2.0); VENOUS HCO3 25.3 MMOL/L (23.0-27.0); VENOUS O2 SATURATION 81.5 % (60.0-80.0); VENOUS PARTIAL PRESSURE CO2 51.6 mmHg (38.0-50.0); VENOUS PARTIAL PRESSURE O2 47.5 mmHg (30.0-50.0); VENOUS PH 7.309 UNITS (7.330-7.430); VENOUS STANDARD HCO3 22.9 MMOL/L; VENOUS TOTAL CO2 26.9 MMOL/L (24.0-28.0)
[2025-05-04] MEDS ORDERED: FLUT12AE2 INH (13:10)
[2025-05-04] MEDS ORDERED: PARO20TA3 PO (13:19)
[2025-05-04] MEDS: IPRATROPIUM 0.5 MG/ALBUTEROL 2.5 MG INH SOL UD 3 ML NEB ONE ×2 (13:51→19:19)
[2025-05-04] MEDS: ALBUTEROL SULFATE 2.5 MG/0.5 ML INH CONCENTRATE NEB SOLN INH ONE ×2 (13:51→19:19)
[2025-05-04 14:55] LABS: ALT/SGPT 18 U/L (7.0-40); AST/SGOT 20 U/L (<34); CALCIUM LEVEL 9.1 MG/DL (8.3-10.6); CARBON DIOXIDE LEVEL 27 MMOL/L (20-31); CHLORIDE LEVEL 101 MMOL/L (98-107); CREATININE FOR GFR 0.99 MG/DL (0.55-1.30); GLOMERULAR FILTRATION RATE 54.5 (>32); POTASSIUM SERUM 4.8 MMOL/L (3.5-5.1); SODIUM LEVEL 140 MMOL/L (136-145)
[2025-05-04] MEDS ORDERED: HOME MED LIST COMPLETE! XX SCH (15:55)
[2025-05-04] MEDS ORDERED: ISOVUE-370 76% 100 ML VIAL As Ordered ONE (16:18)
[2025-05-04 20:12] LABS: KETONE, URINE AUTO RFX NEGATIVE (NEGATIVE); LEUKOCYTE ESTERASE UR AUTO RFX NEGATIVE (NEGATIVE); MUCUS, URINE RFX SMALL (NEGATIVE); NITRITE, URINE AUTO RFX NEGATIVE (NEGATIVE); RBC, URINE AUTO RFX 1 /HPF (0-3); SQUAM EPITHELIAL CELL UR AURFX 5 /HPF (0-6); WBC, URINE AUTO RFX 1 /HPF (0-3)
[2025-05-04] MEDS ORDERED: LEVALBUTEROL 1.25 MG 0.5ML CONCENTRATE NEB INH PRN (21:40)
[2025-05-04] MEDS ORDERED: ALBUTEROL 90 MCG/ACT 8 GM HFA INHALER INH PRN (21:40)
[2025-05-04] MEDS ORDERED: MOM 30 ML SUSPENSION UDC PO PRN (21:45)
[2025-05-04] MEDS ORDERED: MAALOX 30 ML SUSP *UDC PO PRN (21:45)
[2025-05-04 22:12] LABS: MAGNESIUM LEVEL 1.8 MG/DL (1.8-2.4)
[2025-05-04 23:19] VITALS: BP 149/73; TEMP 97.7; O2SAT 96
[2025-05-04] MEDS: SUCRALFATE SUSP 1GM/10ML UD PO SCH (23:23)
[2025-05-04] MEDS: guaiFENesin ER TABLET 600 MG TAB PO SCH (23:24)
[2025-05-04] MEDS: ALPRAZolam 0.25 MG TAB PO PRN (23:24)
[2025-05-04] MEDS: PANTOPRAZOLE 40MG VIAL IV SCH (23:25)
[2025-05-04] MEDS: AZITHROMYCIN INJ 500 MG, VIAL MATE ADAPTER 1 EACH in NS 250 ML IV SCH (23:26)
[2025-05-04] MEDS: cefTRIAXone SOD 1 GM in DEXTROSE 5% (D5W) ADV/MINI-BAG 50 ML IV SCH (23:26)
[2025-05-04] MEDS: GABAPENTIN 100 MG CAP PO SCH (23:49)
[2025-05-04] MEDS: LATANOPROST 0.005% OPHTH SOLN 2.5 ML OU SCH (23:49)
[2025-05-04] MEDS: ACETAMINOPHEN 325 MG TAB PO PRN (23:58)
[2025-05-05] VITALS (7 sets, daily range): BP systolic 124–149; BP diastolic 62–73; TEMP 97.5–98.4; O2SAT 94–98
[2025-05-05] MEDS: IPRATROPIUM 0.5 MG/ALBUTEROL 2.5 MG INH SOL UD 3 ML INH SCH (01:16)
[2025-05-05] MEDS: CEPACOL LOZENGE PO PRN (04:28)
[2025-05-05] MEDS: ONDANSETRON 4MG ORAL DISINTEGRATING TAB PO PRN (05:17)
[2025-05-05 06:26] LABS: PLATELET COUNT, AUTOMATED 464 10^3/uL (150-450)
[2025-05-05 06:52] LABS: ALT/SGPT 22.0 U/L (7.0-40); AST/SGOT 24.0 U/L (<34); CALCIUM LEVEL 9.2 MG/DL (8.3-10.6); CARBON DIOXIDE LEVEL 20.0 MMOL/L (20-31); CHLORIDE LEVEL 102.0 MMOL/L (98-107); CREATININE FOR GFR 1.01 MG/DL (0.55-1.30); GLOMERULAR FILTRATION RATE 53.2 (>32); MAGNESIUM LEVEL 1.8 MG/DL (1.8-2.4); POTASSIUM SERUM 4.3 MMOL/L (3.5-5.1); SODIUM LEVEL 138.0 MMOL/L (136-145)
[2025-05-05] MEDS: FLUTICASONE HFA 110 MCG 12 GM INHALER INH SCH (07:11)
[2025-05-05] MEDS: DOCUSATE SODIUM 100 MG CAPSULE PO SCH (07:35)
[2025-05-05] MEDS: predniSONE 10 MG TAB PO SCH (08:25)
[2025-05-05] MEDS: PARoxetine 20MG TABLET PO SCH (08:25)
[2025-05-05] MEDS: ACETAMINOPHEN 650 MG ER TAB PO SCH (08:26)
[2025-05-05] MEDS: NYSTATIN 500,000 UNITS/5 ML SUSP UDC SS SCH (08:26)
[2025-05-05] MEDS: ENOXAPARIN 40 MG/0.4 ML SYRINGE (J1650 PER 10MG) SC SCH (08:26)
[2025-05-05] MEDS ORDERED: [UNRECOGNIZED DRUG - MIXTURE] INH SCH (09:00)
[2025-05-05] MEDS ORDERED: ONDANSETRON 4MG 2ML VIAL IV PRN (09:05)
[2025-05-05] MEDS: SUCRALFATE SUSP 1GM/10ML UD PO SCH (12:04)
[2025-05-05] MEDS ORDERED: GABAPENTIN 100 MG CAP PO SCH (18:00)
[2025-05-05] MEDS: SODIUM CHLORIDE NASAL 0.65% SPRAY BTL (OCEAN) SCH (21:43)
[2025-05-06] VITALS (7 sets, daily range): BP systolic 96–183; BP diastolic 62–85; TEMP 97.7–97.9; O2SAT 91–97
[2025-05-06] MEDS: predniSONE 20 MG TAB PO SCH (08:24)
[2025-05-06] MEDS ORDERED: NYST-38 SS (11:37)
== END 2025-05-06 15:15 | disposition home or self-care (01) | DRG 191 ==
LOC: EDBD 12:37 → M ED 12:37 → M ED INP 21:41 → M MSPAV 22:56
PROVIDERS: ADMIT Family Medicine; ATTEND Internal Medicine Nephrology
DX: J44.1 Chronic obstructive pulmonary disease with (acute) exacerbation (principal); I50.32 Chronic diastolic (congestive) heart failure; J96.11 Chronic respiratory failure with hypoxia; J98.11 Atelectasis; I11.0 Hypertensive heart disease with heart failure; M85.80 Other specified disorders of bone density and structure, unspecified site; H40.9 Unspecified glaucoma; J44.0 Chronic obstructive pulmonary disease with (acute) lower respiratory infection; K21.00 Gastro-esophageal reflux disease with esophagitis, without bleeding; E78.5 Hyperlipidemia, unspecified; F41.9 Anxiety disorder, unspecified; M75.101 Unspecified rotator cuff tear or rupture of right shoulder, not specified as traumatic; I08.3 Combined rheumatic disorders of mitral, aortic and tricuspid valves; J43.9 Emphysema, unspecified; J20.9 Acute bronchitis, unspecified; I27.20 Pulmonary hypertension, unspecified; K44.9 Diaphragmatic hernia without obstruction or gangrene; Z79.52 Long term (current) use of systemic steroids; Z79.899 Other long term (current) drug therapy; Z88.5 Allergy status to narcotic agent; Z88.8 Allergy status to other drugs, medicaments and biological substances; Z99.81 Dependence on supplemental oxygen; Z91.040 Latex allergy status; Z91.048 Other nonmedicinal substance allergy status; Z90.49 Acquired absence of other specified parts of digestive tract

== ENCOUNTER 2025-07-04 16:51 | Inpatient (IN) | payer MEDICARE ==
[~2025-07-04] VITALS: Ht 152.4 cm; Wt 64.0 kg
[~2025-07-04 16:51] MED LIST changes: +FLUT12AE2 INH; +GABA-1171 PO; +LISI40TA10 PO; +PARO20TA3 PO
[2025-07-04] MEDS: NS 500 ML IV ONE (18:27)
[2025-07-04] MEDS ORDERED: HOME MED LIST COMPLETE! XX SCH (18:40)
[2025-07-04 18:41] LABS: PLATELET COUNT, AUTOMATED 339 10^3/uL (150-450)
[2025-07-04] MEDS ORDERED: PILL CUTTER 1 EACH XX PRN (19:25)
[2025-07-04 19:36] LABS: ATYPICAL LYMPH 2 % (0-5); LYMPHOCYTES 10 % (16-44); MONOCYTES 1 % (0-5); NEUTROPHILS 81 % (28-66); PLATELET ESTIMATE NORMAL (NORMAL)
[2025-07-04] MEDS: LR 1,000 ML IV SCH (19:40)
[2025-07-04] MEDS: MORPHINE 2 MG/ML 1 ML VIAL IV ONE (19:49)
[2025-07-04 19:57] LABS: ALT/SGPT 28.0 U/L (7.0-40); AST/SGOT 28.0 U/L (<34)
[2025-07-04] MEDS: POLYSPORIN TOPICAL OINTMENT 15GM TOP SCH (20:00)
[2025-07-04 20:25] LABS: CALCIUM LEVEL 10.2 MG/DL (8.3-10.6); CARBON DIOXIDE LEVEL 27.0 MMOL/L (20-31); CHLORIDE LEVEL 103.0 MMOL/L (98-107); CREATININE FOR GFR 1.78 MG/DL (0.55-1.30); GLOMERULAR FILTRATION RATE 27.0 (>32); POTASSIUM SERUM 4.6 MMOL/L (3.5-5.1); SODIUM LEVEL 137.0 MMOL/L (136-145)
[2025-07-04] MEDS: LATANOPROST 0.005% OPHTH SOLN 2.5 ML OU SCH (21:00)
[2025-07-04] MEDS: LIDOCAINE 2% 5 ML JELLY UROJET TOP ONE (21:05)
[2025-07-04] MEDS: PIPERACILLIN/TAZOBACTAM SOD 3.375 GM in DEXTROSE 5% (D5W) ADV/MINI-BAG 50 ML IV SCH (21:17)
[2025-07-04] MEDS: PANTOPRAZOLE 40MG TAB PO SCH (21:18)
[2025-07-04 21:25] LABS: CPK CREATINE PHOSPHOKINASE 112.0 U/L (34-145)
[2025-07-04] MEDS: IPRATROPIUM 0.5 MG/ALBUTEROL 2.5 MG INH SOL UD 3 ML NEB SCH (21:28)
[2025-07-04] MEDS: FLUTICASONE HFA 110 MCG 12 GM INHALER INH SCH (21:29)
[2025-07-04 22:27] LABS: KETONE, URINE AUTO RFX NEGATIVE (NEGATIVE); LEUKOCYTE ESTERASE UR AUTO RFX NEGATIVE (NEGATIVE); MUCUS, URINE RFX SMALL (NEGATIVE); NITRITE, URINE AUTO RFX NEGATIVE (NEGATIVE); RBC, URINE AUTO RFX 1 /HPF (0-3); SQUAM EPITHELIAL CELL UR AURFX 1 /HPF (0-6); WBC, URINE AUTO RFX 1 /HPF (0-3)
[2025-07-05] MEDS: ALBUTEROL SULFATE 2.5 MG/0.5 ML INH CONCENTRATE NEB SOLN NEB PRN (01:36)
[2025-07-05] MEDS: PARoxetine 20MG TABLET PO SCH (08:53)
[2025-07-05] MEDS: predniSONE 10 MG TAB PO SCH (08:54)
[2025-07-05] MEDS: HEPARIN SOD 5000 UNITS/ML 1 ML VIAL/SYRINGE SC SCH (09:00)
[2025-07-05] MEDS: LIDOCAINE 5% PATCH TD SCH (09:06)
[2025-07-05] MEDS: TIOTROPIUM BROM 2.5MCG/ACTUATION 4GM INH INH SCH (09:10)
[2025-07-05] MEDS: SODIUM CHLORIDE 0.9% 3 ML NEB SOLUTION FOR INHALATION INH SCH (14:00)
[2025-07-05 15:27] LABS: PLATELET COUNT, AUTOMATED 283 10^3/uL (150-450)
[2025-07-05 15:48] LABS: CALCIUM LEVEL 8.6 MG/DL (8.3-10.6); CARBON DIOXIDE LEVEL 20.0 MMOL/L (20-31); CHLORIDE LEVEL 103.0 MMOL/L (98-107); CREATININE FOR GFR 2.21 MG/DL (0.55-1.30); GLOMERULAR FILTRATION RATE 20.8 (>32); POTASSIUM SERUM 4.5 MMOL/L (3.5-5.1); SODIUM LEVEL 137.0 MMOL/L (136-145)
[2025-07-05] MEDS: GABAPENTIN 100 MG CAP PO SCH (18:14)
[2025-07-05 22:55] VITALS: BP 134/62; TEMP 97.9; O2SAT 93
[2025-07-06] VITALS (13 sets, daily range): BP systolic 128–139; BP diastolic 56–72; TEMP 97–97.5; O2SAT 89–97
[2025-07-06 05:49] LABS: PLATELET COUNT, AUTOMATED 310 10^3/uL (150-450)
[2025-07-06 06:17] LABS: CALCIUM LEVEL 8.6 MG/DL (8.3-10.6); CARBON DIOXIDE LEVEL 27.0 MMOL/L (20-31); CHLORIDE LEVEL 102.0 MMOL/L (98-107); CREATININE FOR GFR 2.03 MG/DL (0.55-1.30); GLOMERULAR FILTRATION RATE 23.0 (>32); POTASSIUM SERUM 4.4 MMOL/L (3.5-5.1); SODIUM LEVEL 134.0 MMOL/L (136-145)
[2025-07-06] MEDS: SODIUM CHLORIDE NASAL 0.65% SPRAY BTL (OCEAN) SCH (14:36)
[2025-07-07] VITALS (19 sets, daily range): BP systolic 116–158; BP diastolic 60–76; TEMP 97–97.6; O2SAT 87–97
[2025-07-07 05:45] LABS: PLATELET COUNT, AUTOMATED 332 10^3/uL (150-450)
[2025-07-07 06:09] LABS: CALCIUM LEVEL 8.5 MG/DL (8.3-10.6); CARBON DIOXIDE LEVEL 25.0 MMOL/L (20-31); CHLORIDE LEVEL 103.0 MMOL/L (98-107); CREATININE FOR GFR 1.6 MG/DL (0.55-1.30); GLOMERULAR FILTRATION RATE 30.6 (>32); POTASSIUM SERUM 3.9 MMOL/L (3.5-5.1); SODIUM LEVEL 138.0 MMOL/L (136-145)
[2025-07-07] MEDS: IPRATROPIUM 0.5 MG/ALBUTEROL 2.5 MG INH SOL UD 3 ML NEB SCH (08:00)
[2025-07-07] MEDS: BISACODYL 5 MG TAB PO ONE (14:40)
[2025-07-07] MEDS: ACETAMINOPHEN 500 MG TAB PO PRN (14:40)
[2025-07-08] VITALS (12 sets, daily range): BP systolic 120–194; BP diastolic 64–90; TEMP 97.1–97.6; O2SAT 94–99
[2025-07-08 06:18] LABS: PLATELET COUNT, AUTOMATED 317 10^3/uL (150-450)
[2025-07-08 06:49] LABS: CALCIUM LEVEL 8.2 MG/DL (8.3-10.6); CARBON DIOXIDE LEVEL 28.0 MMOL/L (20-31); CHLORIDE LEVEL 102.0 MMOL/L (98-107); CREATININE FOR GFR 1.34 MG/DL (0.55-1.30); GLOMERULAR FILTRATION RATE 37.9 (>32); POTASSIUM SERUM 4.1 MMOL/L (3.5-5.1); SODIUM LEVEL 138.0 MMOL/L (136-145)
[2025-07-08] MEDS: PIPERACILLIN/TAZOBACTAM SOD 3.375 GM in DEXTROSE 5% (D5W) ADV/MINI-BAG 50 ML IV SCH (09:56)
[2025-07-08] MEDS: BISACODYL 5 MG TAB PO SCH (09:57)
[2025-07-08] MEDS: NYSTATIN 500,000 UNITS/5 ML SUSP UDC SS SCH (14:41)
[2025-07-08] MEDS: BENZONATATE 100 MG CAPSULE PO PRN (18:30)
[2025-07-09] VITALS (17 sets, daily range): BP systolic 120–180; BP diastolic 76–94; TEMP 97–98.6; O2SAT 92–98
[2025-07-09] MEDS: guaiFENesin ER TABLET 600 MG TAB PO ONE (00:06)
[2025-07-09] MEDS: FLUTICASONE PROPIONATE 0.05% NASAL SPRAY 16 GM NARES SCH (00:39)
[2025-07-09] MEDS: hydrALAZINE 20 MG/ML 1 ML VIAL IV STA (04:27)
[2025-07-09 06:52] LABS: PLATELET COUNT, AUTOMATED 363 10^3/uL (150-450)
[2025-07-09 07:17] LABS: CALCIUM LEVEL 7.9 MG/DL (8.3-10.6); CARBON DIOXIDE LEVEL 27.0 MMOL/L (20-31); CHLORIDE LEVEL 103.0 MMOL/L (98-107); CREATININE FOR GFR 1.18 MG/DL (0.55-1.30); GLOMERULAR FILTRATION RATE 44.2 (>32); POTASSIUM SERUM 4.3 MMOL/L (3.5-5.1); SODIUM LEVEL 139.0 MMOL/L (136-145)
[2025-07-09] MEDS: amLODIPine 5 MG TAB PO SCH ×2 (08:37→20:24)
[2025-07-09] MEDS: IPRATROPIUM 0.5 MG/ALBUTEROL 2.5 MG INH SOL UD 3 ML NEB SCH (11:35)
[2025-07-09] MEDS: ADVAIR HFA 230/21 MCG INHALER INH SCH (11:35)
[2025-07-09] MEDS: SODIUM CHLORIDE HYPERTONIC 3% 4ML NEB SOL INH SCH (11:36)
[2025-07-10] VITALS (27 sets, daily range): BP systolic 148–172; BP diastolic 70–92; TEMP 96.9–97.7; O2SAT 90–96
[2025-07-10 06:14] LABS: PLATELET COUNT, AUTOMATED 380 10^3/uL (150-450)
[2025-07-10 06:17] LABS: CALCIUM LEVEL 7.8 MG/DL (8.3-10.6); CARBON DIOXIDE LEVEL 24.0 MMOL/L (20-31); CHLORIDE LEVEL 104.0 MMOL/L (98-107); CREATININE FOR GFR 1.12 MG/DL (0.55-1.30); GLOMERULAR FILTRATION RATE 47.0 (>32); POTASSIUM SERUM 4.0 MMOL/L (3.5-5.1); SODIUM LEVEL 139.0 MMOL/L (136-145)
[2025-07-10] MEDS: predniSONE 20 MG TAB PO SCH (09:44)
[2025-07-10] MEDS: guaiFENesin DM LIQ 10ML UD PO PRN (12:54)
[2025-07-11] VITALS (28 sets, daily range): BP systolic 121–179; BP diastolic 58–76; TEMP 96.8–98.1; O2SAT 88–100
[2025-07-11 05:28] LABS: PLATELET COUNT, AUTOMATED 370 10^3/uL (150-450)
[2025-07-11 05:51] LABS: CALCIUM LEVEL 7.6 MG/DL (8.3-10.6); CARBON DIOXIDE LEVEL 26.0 MMOL/L (20-31); CHLORIDE LEVEL 104.0 MMOL/L (98-107); CREATININE FOR GFR 1.25 MG/DL (0.55-1.30); GLOMERULAR FILTRATION RATE 41.2 (>32); POTASSIUM SERUM 4.1 MMOL/L (3.5-5.1); SODIUM LEVEL 138.0 MMOL/L (136-145)
[2025-07-11] MEDS ORDERED: IPRATROPIUM 0.5 MG/ALBUTEROL 2.5 MG INH SOL UD 3 ML NEB PRN (11:05)
[2025-07-11] MEDS: SODIUM CHLORIDE HYPERTONIC 3% 4ML NEB SOL INH SCH (11:33)
[2025-07-11] MEDS: ALBUTEROL SULFATE 2.5 MG/0.5 ML INH CONCENTRATE NEB SOLN NEB SCH (11:34)
[2025-07-12] VITALS (18 sets, daily range): BP systolic 140–160; BP diastolic 64–88; TEMP 97–97.7; O2SAT 91–99
[2025-07-12 05:12] LABS: PLATELET COUNT, AUTOMATED 437 10^3/uL (150-450)
[2025-07-12 05:40] LABS: CALCIUM LEVEL 8.1 MG/DL (8.3-10.6); CARBON DIOXIDE LEVEL 25.0 MMOL/L (20-31); CHLORIDE LEVEL 105.0 MMOL/L (98-107); CREATININE FOR GFR 1.16 MG/DL (0.55-1.30); GLOMERULAR FILTRATION RATE 45.1 (>32); POTASSIUM SERUM 3.8 MMOL/L (3.5-5.1); SODIUM LEVEL 138.0 MMOL/L (136-145)
[2025-07-12] MEDS ORDERED: AMLO1TAB24 PO (10:25)
[2025-07-12] MEDS ORDERED: LASI20TA3 PO (10:25)
[2025-07-12] MEDS ORDERED: PRED10TA2 PO (12:06)
== END 2025-07-12 13:35 | disposition home health service (06) | DRG 871 ==
LOC: EDBD 16:51 → M ED 16:51 → M ED INP 20:02 → M PCU 07-05 22:54
PROVIDERS: ADMIT Student in an Organized Health Care Education/Training Program; ATTEND Internal Medicine Nephrology
DX: A41.9 Sepsis, unspecified organism (principal); J18.9 Pneumonia, unspecified organism; I50.32 Chronic diastolic (congestive) heart failure; N17.9 Acute kidney failure, unspecified; J96.11 Chronic respiratory failure with hypoxia; B37.0 Candidal stomatitis; J44.0 Chronic obstructive pulmonary disease with (acute) lower respiratory infection; J44.1 Chronic obstructive pulmonary disease with (acute) exacerbation; J47.1 Bronchiectasis with (acute) exacerbation; R65.20 Severe sepsis without septic shock; I11.0 Hypertensive heart disease with heart failure; K21.00 Gastro-esophageal reflux disease with esophagitis, without bleeding; F41.9 Anxiety disorder, unspecified; M19.90 Unspecified osteoarthritis, unspecified site; I27.20 Pulmonary hypertension, unspecified; R19.7 Diarrhea, unspecified; J43.9 Emphysema, unspecified; R33.9 Retention of urine, unspecified; M54.50 Low back pain, unspecified; R53.1 Weakness; R53.81 Other malaise; Z99.81 Dependence on supplemental oxygen; Z79.52 Long term (current) use of systemic steroids; Z79.899 Other long term (current) drug therapy; Z88.1 Allergy status to other antibiotic agents; Z88.5 Allergy status to narcotic agent; Z88.8 Allergy status to other drugs, medicaments and biological substances; Z91.040 Latex allergy status; Z91.048 Other nonmedicinal substance allergy status; Z90.49 Acquired absence of other specified parts of digestive tract; Z98.41 Cataract extraction status, right eye; Z98.42 Cataract extraction status, left eye; Z87.891 Personal history of nicotine dependence

== ENCOUNTER 2025-10-05 10:03 | Emergency (ER) | payer MEDICARE ==
[~2025-10-05] VITALS: Ht 162.6 cm; Wt 54.5 kg
[~2025-10-05 10:03] MED LIST changes: -BACTDSTA PO; +LASI20TA3 PO; +LEVO1TAB39 PO; +METO1TAB87 PO; +PROB250C PO; +SENN18TA PO; +SULF-8 PO
[2025-10-05 10:42] LABS: VENOUS BASE EXCESS 0.8 (-2.0-2.0); VENOUS HCO3 27.1 MMOL/L (23.0-27.0); VENOUS O2 SATURATION 57.2 % (60.0-80.0); VENOUS PARTIAL PRESSURE CO2 50.5 mmHg (38.0-50.0); VENOUS PARTIAL PRESSURE O2 31.0 mmHg (30.0-50.0); VENOUS PH 7.348 UNITS (7.330-7.430); VENOUS STANDARD HCO3 24.4 MMOL/L; VENOUS TOTAL CO2 28.7 MMOL/L (24.0-28.0)
[2025-10-05 10:47] LABS: BASO # 0.0 10^3/uL (0.0-0.2); BASO % 0.3 % (0.0-1.0); EOS # 0.0 10^3/uL (0.0-0.5); EOS % 0.1 % (0.0-3.0); LYMPH # 1.6 10^3/uL (1.5-5.0); LYMPH % 9.9 % (24.0-44.0); MONO # 0.7 10^3/uL (0.0-0.8); MONO % 4.3 % (2.0-8.0); NEUTROPHILS # 13.4 10^3/uL (1.5-8.5); NEUTROPHILS % 85.0 % (36.0-66.0); PLATELET COUNT, AUTOMATED 509 10^3/uL (150-450)
[2025-10-05 11:19] LABS: ALT/SGPT 15.0 U/L (7.0-40); AST/SGOT 13.0 U/L (<34); CALCIUM LEVEL 8.4 MG/DL (8.3-10.6); CARBON DIOXIDE LEVEL 28.0 MMOL/L (20-31); CHLORIDE LEVEL 102.0 MMOL/L (98-107); CK-MB VALUE MASS 1.4 NG/ML (<3.6); CPK CREATINE PHOSPHOKINASE 19.0 U/L (34-145); CREATININE FOR GFR 0.9 MG/DL (0.55-1.30); GLOMERULAR FILTRATION RATE 61.1 (>32); MB/CK RELATIVE INDEX 7.36 (< OR =4); POTASSIUM SERUM 3.7 MMOL/L (3.5-5.1); SODIUM LEVEL 140.0 MMOL/L (136-145)
[2025-10-05 11:21] LABS: FREE T4 1.47 NG/DL (0.89-1.76)
[2025-10-05 12:19] LABS: CK-MB VALUE MASS 1.5 NG/ML (<3.6)
[2025-10-05 12:22] LABS: CPK CREATINE PHOSPHOKINASE 19.0 U/L (34-145); MB/CK RELATIVE INDEX 7.89 (< OR =4)
[2025-10-05] MEDS ORDERED: ISOVUE-370 76% 100 ML VIAL As Ordered ONE (12:52)
[2025-10-05] MEDS ORDERED: DOXY-441 PO (14:23)
[2025-10-05] MEDS ORDERED: LASI20TA3 PO (14:24)
[2025-10-05] MEDS ORDERED: PRED10TA2 PO (14:24)
[2025-10-05 14:30] VITALS: BP 126/58; TEMP 98.4; O2SAT 94
== END 2025-10-05 15:10 | disposition home or self-care (01) ==
LOC: M ED 10:03 → EDBD 10:03 → M ED 15:10
DX: J44.1 Chronic obstructive pulmonary disease with (acute) exacerbation (principal); J96.11 Chronic respiratory failure with hypoxia; K21.9 Gastro-esophageal reflux disease without esophagitis; I25.2 Old myocardial infarction; I10 Essential (primary) hypertension; Z87.891 Personal history of nicotine dependence; Z88.5 Allergy status to narcotic agent; Z88.8 Allergy status to other drugs, medicaments and biological substances; Z91.040 Latex allergy status; Z79.51 Long term (current) use of inhaled steroids; Z79.899 Other long term (current) drug therapy; Z79.52 Long term (current) use of systemic steroids
CPT/HCPCS: 36415; 71045; 71275; 80048; 80076; 82550; 82553; 82803; 83605; 83880; 84439; 84443; 84484; 85025; 87040; 87486; 87581; 87633; 87798; 93005; 93041; 94760; 99285; Q9967